=== PATIENT | female | born 1940 | race Caucasian/White ===

== ENCOUNTER 2016-08-15 10:48 | Observation (INO) | payer MEDICARE, BC ==
[2016-08-15 11:41] LABS: Hematocrit 32.5 % (37.0-47.0); Mean Cell Volume 87.1 fl (78-100); Mean Corpuscular Hemoglobin 26.8 pg (27-31); Mean Corpuscular Hgb Conc 30.8 g/dl (32-36); Mean Platelet Volume 10.5 fl (6.0-9.5); Neutrophil # 3.4 K/mm3 (1.3-6.0); Neutrophil % 65.3 % (42-75.0); Platelet Count 220 K/mm3 (150-450); Red Blood Count 3.73 M/mm3 (4.2-5.4); Red Cell Distribution Width 18.5 % (11.5-14.0); White Blood Count 5.2 K/mm3 (4.0-10.5)
[2016-08-15 11:51] LABS: Prothrombin Time (Patient) 11.3 Seconds (9.4-11.4)
[2016-08-15 11:53] LABS: INR 1.09 INR (0.90-1.10); Partial Thrombolplastin Time 29.7 Seconds (24-32)
[2016-08-15 11:57] LABS: Troponin I 0.086 ng/ml (0.00-0.10)
[2016-08-15 11:59] LABS: Albumin * 3.2 gm/dl (3.4-5.0); Anion Gap 13.3 mmol/L (6.8-13.8); BUN/Creatinine Ratio 13.3 (9.0-21.6); Bilirubin, Total 0.5 mg/dL (0.0-1.1); Ca. Corrected For Albumin 8.7 mg/dL (8.4-10.2); Calcium * 8.4 mg/dL (7.9-10.9); Carbon Dioxide 23.4 mmol/L (24-32.6); Potassium 3.7 mmol/L (3.4-4.6); Total Protein 6.2 gm/dL (6.2-8.2)
[2016-08-15] MEDS ORDERED: DILTIAZEM HCL 5 MG/ML VIAL IV ONE (11:59)
[2016-08-15] MEDS: DILTIAZEM HCL 125 MG in DEXTROSE 5 % IN WATER 100 ML IV PRN ×4 (12:20→19:16)
--- NOTE | 2016-08-15 14:04 | ERNOTE ---
Dizziness ER Record Date of Service: 08/15/16 Presenting Symptoms: dizziness, weakness Time Seen by Provider: 08/15/16 11:20 Source: patient, family, RN notes reviewed Immunizations: IMMUNIZATION HX Immunizations Up to Date No History of Influenza Vaccine Yes Hx Pneumococcal Vaccination Yes Allergies/Adverse Reactions: Allergies Allergy/AdvReac Type Severity Reaction Status Date / Time chlorpheniramine Allergy Intermediate Verified 08/13/16 11:20 [From Codeine Antitussive Cough] hydrocodone [Hydrocodone] Allergy Intermediate hallucinati Verified 08/13/16 11: 20 ons phenylephrine HCl Allergy Unknown Verified 08/13/16 11:20 [From Codeine Antitussive Cough] acetaminophen [From Vicodin] Allergy Verified 08/13/16 11:20 hydrocodone bitartrate Allergy Verified 08/13/16 11:20 [From Vicodin] morphine Allergy Verified 08/13/16 11:20 codeine [Codeine] AdvReac Nausea Verified 08/13/16 11:20 promethazine AdvReac Other Verified 08/13/16 11:20 Home Medications: HOME MEDICATIONS Atenolol [Tenormin] 25 mg PO DAILY 07/23/13 [Last Taken 06/08/16 06:30] Folic Acid 2 mg PO DAILY 04/07/14 [Last Taken 06/07/16 09:00] Methotrexate Sodium [Methotrexate] 25 mg SQ Q7D 04/07/14 [Last Taken 06/05/16 09 :00] LORazepam [Ativan] 0.5 mg PO TID PRN #0 tablet 04/08/14 [Last Taken 06/08/16 06: 30] Pantoprazole Sodium [Protonix] 20 mg PO DAILY 03/17/15 [Last Taken 06/07/16 09: 00] Prednisone [[place]ar[place]] 3 mg PO DAILY 03/17/15 [Last Taken 06/07/16 09:00] Calcium Carbonate [Calcium] 500 mg PO DAILY 06/08/16 [Last Taken 06/07/16 09:00] Ondansetron [Zofran Odt] 4 mg PO Q8H PRN #20 tab 08/13/16 [Last Taken Unknown] - History of Present Illness Narrative: sick for several days with cough and shortness of breath, was weaker this am, could hardly get her up. Was seen 2 days ago for syncope and gastroenteritis but has not been getting better. Timing and Duration: gradual onset Review of Systems - Review of Systems Constitutional: Present: weakness, fatigue EYE: Present: no symptoms reported Respiratory: Present: cough Gastrointestinal/Abdominal: Present: nausea. Absent: abdominal pain Genitourinary: Present: no symptoms reported Neurological: Present: dizziness/light-headedness. Absent: headache Endocrine: Present: no symptoms reported Hematologic/Lymphatic: Present: no symptoms reported Psych: Present: no symptoms reported - Patient's Past Medical History Patient History - Medical: Anxiety, Chronic Pain, Depression, GERD, Kidney stone , Rheumatoid Arthritis Patient History - Cardiac/Respiratory: Hypertension Patient History - Cancer: No Hx of Cancer Patient History - Surgical Procedures: Cataracts, Colonoscopy, EGD, Other - Family History Mother Family History - Medical: Alcohol Abuse Family History - Cardiac/Respiratory: CHF Father Family History - Medical: Alcohol Abuse Family History - Cardiac/Respiratory: CVA/Stroke, Myocardial Infarction Brother Family History - Medical: Anxiety, Chronic Pain, GERD, Renal Failure Family History - Cardiac/Respiratory: Hypertension, Pneumonia - Social History Living Situations: spouse Smoking Status: Never smoker Have you smoked in the past 12 months: No Do you dip or chew tobacco: No Patient requests Smoking Cessation Consult: No Initiate information on Smoking Cessation: No Alcohol Use: none Drug Use: none Physical Exam - Physical Exam General Appearance: Present: wd/wn, alert, mild distress Eye Exam: Normal inspection: bilateral, PERRL: bilateral Ears, Nose, Throat: Present: normal ENT inspection Neck: Present: normal inspection Respiratory: Present: no respiratory distress, normal breath sounds, no accessory muscle use, lungs clear Cardiovascular/Chest: Present: tachycardia, irregularly irregular Gastrointestinal/Abdominal: Present: normal bowel sounds, no organomegaly Rectal Exam: Present: nontender Neurological Exam: Present: alert Skin Exam: Present: normal color ED Progress - Results and Orders Patient's Lab Results:: I have reviewed the patient's lab results. - Vital Signs Patient's Vital Signs:: I have reviewed the patient's vital signs. Vital Signs: Vital Signs 08/15/16 08/15/16 08/15/16 11:02 11:10 11:14 Temperature Pulse Rate 164 H 156 H 174 H Respiratory 23 H 19 23 H Rate Blood Pressure O2 Sat by Pulse 93 93 92 Oximetry 08/15/16 08/15/16 08/15/16 11:18 11:27 11:40 Temperature 36.5 C Pulse Rate 163 H 170 H 170 H Respiratory 17 17 Rate Blood Pressure 91/72 91/72 O2 Sat by Pulse 95 91 Oximetry 08/15/16 08/15/16 08/15/16 12:00 12:03 12:09 Temperature Pulse Rate 165 H 151 H 167 H Respiratory 18 18 16 Rate Blood Pressure 95/56 104/68 O2 Sat by Pulse 96 97 97 Oximetry 08/15/16 08/15/16 08/15/16 12:12 12:20 12:21 Temperature Pulse Rate 125 H 120 H 126 H Respiratory 17 19 Rate Blood Pressure 81/53 81/53 88/61 O2 Sat by Pulse 97 97 Oximetry 08/15/16 12:25 Temperature Pulse Rate 133 H Respiratory 15 Rate Blood Pressure 102/63 O2 Sat by Pulse 98 Oximetry - X-Ray X-Ray #1 X-Ray: chest Interpretation: Reviewed by me X-ray Comments: no acute - Progress/Reassessment Chief Complaint: Dizziness Plan - Plan Plan: Admit to hospital, ICU, tim [place]. Departure Clinical Impression: Atrial fibrillation - Departure Disposition: [facility] Condition: Fair Instructions: Atrial Fibrillation, [id number]
[2016-08-15] MEDS ORDERED: ENOXAPARIN SODIUM 30 MG/0.3 ML SYRG SC ONE ×2 (15:23)
[2016-08-15] MEDS ORDERED: ENOXAPARIN SODIUM 100 MG/ML SYRG SC ONE (15:28)
[2016-08-15] MEDS ORDERED: LORazepam 0.5 MG TABLET PO PRN (16:42)
[2016-08-15] MEDS ORDERED: ACETAMINOPHEN 325 MG TABLET PO PRN (16:44)
[2016-08-15] MEDS ORDERED: METHOTREXATE SODIUM 2.5 MG TABLET PO SCH (16:45)
[2016-08-15 17:02] LABS: T4 Free * 1.4 ng/dL (0.76-1.46); TSH * 6.498 uIU/mL (0.358-3.74)
[2016-08-15] MEDS ORDERED: ATENOLOL 50 MG TABLET ONE (18:41)
[2016-08-15] MEDS: ATENOLOL 25 MG TABLET PO SCH (18:47)
--- NOTE | 2016-08-15 20:48 | HP ---
Chief Complaint - Chief Complaint Date of Service: 08/15/16 Time of Service: 20:42 Chief Complaint: Weak History of Present Illness: This is a 76 y/o woman with rheumatoid arthritis. She does not have a history of irregular or abnormal heart rhythms. She has been sick for several days with cough and shortness of breath, was weaker this am, Her could hardly get her up, so she came to the [facility] ER where she was found to have for the first time ever a fib with rvr. Rate is more controlled with diltiazem, but it has tended to drop her systolic blood pressure.. She was seen 2 days ago in the [facility] ER for syncope and gastroenteritis but has not been getting better. - Patient's Past Medical History Patient History - Medical: Anxiety, Chronic Pain, Depression, GERD, Kidney stone , Rheumatoid Arthritis Patient History - Cardiac/Respiratory: Hypertension Patient History - Cancer: No Hx of Cancer Patient History - Surgical Procedures: Cataracts, Colonoscopy, EGD, Other - Family History Mother Family History - Medical: Alcohol Abuse Family History - Cardiac/Respiratory: CHF Father Family History - Medical: Alcohol Abuse Family History - Cardiac/Respiratory: CVA/Stroke, Myocardial Infarction Brother Family History - Medical: Anxiety, Chronic Pain, GERD, Renal Failure Family History - Cardiac/Respiratory: Hypertension, Pneumonia - Social History Living Situations: alone Smoking Status: Never smoker Have you smoked in the past 12 months: No Do you dip or chew tobacco: No Patient requests Smoking Cessation Consult: No Initiate information on Smoking Cessation: No Alcohol Use: none Drug Use: none Review Of Systems (GEN) - Review of Systems Generalized/Overall Review: Present: Weakness, Malaise EENTM: Present: No Symptoms Reported Respiratory: Present: Cough, Shortness of Breath Cardiac: Present: Syncope Abdominal: Present: Other - anorexia Genitourinary: Present: No Symptoms Reported Musculoskeletal: Present: Joint Pain, Joint Swelling Neurological: Present: No Symptoms Reported Skin: Present: No Symptoms Reported Endocrine: Present: No Symptoms Reported Misc: All systems neg except as marked Allergies/Adverse Reactions: Allergies Allergy/AdvReac Type Severity Reaction Status Date / Time chlorpheniramine Allergy Intermediate Verified 08/15/16 17:50 [From Codeine Antitussive Cough] hydrocodone [Hydrocodone] Allergy Intermediate hallucinati Verified 08/15/16 17: 50 ons phenylephrine HCl Allergy Unknown Verified 08/15/16 17:50 [From Codeine Antitussive Cough] acetaminophen [From Vicodin] Allergy Verified 08/15/16 17:50 hydrocodone bitartrate Allergy Verified 08/15/16 17:50 [From Vicodin] morphine Allergy Verified 08/15/16 17:50 aspirin AdvReac Verified 08/15/16 17:50 codeine [Codeine] AdvReac Nausea Verified 08/15/16 17:50 promethazine AdvReac Other Verified 08/15/16 17:50 Home Medications: HOME MEDICATIONS Atenolol [Tenormin] 25 mg PO DAILY 07/23/13 [Last Taken 06/08/16 06:30] Folic Acid 1 mg PO TID 04/07/14 [Last Taken 06/07/16 09:00] Methotrexate Sodium [Methotrexate] 25 mg SQ Q7D 04/07/14 [Last Taken 06/05/16 09 :00] LORazepam [Ativan] 0.5 mg PO TID PRN #0 tablet 04/08/14 [Last Taken 06/08/16 06: 30] Pantoprazole Sodium [Protonix] 20 mg PO DAILY 03/17/15 [Last Taken 06/07/16 09: 00] Ondansetron [Zofran Odt] 4 mg PO Q8H PRN #20 tab 08/13/16 [Last Taken Unknown] Calc/D3/Mag/Zn/[employer] Dispatcher/[place] [Calcium 600 mg Plus Vit D Tab] 2 each PO DAILY [Last Taken Unknown] Fluticasone Propionate [Flovent Diskus] 2 spray IH DAILY 08/15/16 [Last Taken Unknown] predniSONE [Prednisone] 3 mg PO DAILY 08/15/16 [Last Taken Unknown] Exam - Exam Vital Signs: Vital Signs - Last Taken Selected Entries 08/15/16 08/15/16 08/15/16 18:14 19:00 19:16 Pulse Rate 105 H 101 H 100 Pulse Rhythm Irregular Pulse Strength Normal Respiratory 20 17 Rate Respiratory Normal Normal Depth Respiratory Normal Effort Non-Labored Respiratory Normal Pattern Blood Pressure 137/56 99/56 99/56 Blood Pressure Sitting Position O2 Sat by Pulse 95 98 Oximetry Oxygen Delivery Room Air Room Air Method Constitutional: Present: Alert, Oriented x3, Cooperative, Well developed, Well nourished, No distress ENT Exam: Present: normal ENT inspection, hearing grossly normal, pharynx normal Eye Exam: bilateral eye: normal inspection, PERRL, EOMI Neck: Present: normal inspection Back Exam: Present: normal inspection Respiratory: Present: lungs clear, no respiratory distress Cardiovascular/Chest: Present: no murmur, irregularly irregular Abdomen: Present: Normal bowel sounds, soft, nontender, nondistended, no rebound tenderness, no hepatospenomegaly, no masses Extremity: Present: no pedal edema, other - rheumatic joints, especially fingers Neurologic: Present: alert, oriented x 3 Appearance: Present: appropriate appearance, appropriate insight, neat, no memory impairment Eye contact: Present: cooperative, good eye contact, normal speech Thoughts: Present: normal thought pattern Diagnostic Studies: Laboratory Results WBC 5.2 K/mm3 (4.0-10.5) D 08/15/16 11:33 RBC 3.73 M/mm3 (4.2-5.4) L 08/15/16 11:33 Hgb 10.0 gm/dL (12.5-16.0) L 08/15/16 11:33 Hct 32.5 % (37.0-47.0) L 08/15/16 11:33 MCV 87.1 fl (78-100) 08/15/16 11:33 MCH 26.8 pg (27-31) L 08/15/16 11:33 MCHC 30.8 g/dl (32-36) L 08/15/16 11:33 RDW 18.5 % (11.5-14.0) H 08/15/16 11:33 Plt Count 220 K/mm3 (150-450) 08/15/16 11:33 MPV 10.5 fl (6.0-9.5) H 08/15/16 11:33 Immature Gran % (Auto) 0.40 % (0.001-0.429) 08/15/16 11:33 Immature Gran # (Auto) 0.02 K/mm3 (0.000-0.0310) 08/15/16 11:33 Neutrophils % 65.3 % (42-75.0) 08/15/16 11:33 Lymphocytes % 24.3 % (20-51) 08/15/16 11:33 Monocytes % 9.4 % (0.0-9) H 08/15/16 11:33 Eosinophils % 0.2 % (0.0-3.0) 08/15/16 11:33 Basophils % 0.4 % (0.0-1.0) 08/15/16 11:33 Nucleated RBC % 0.0 k/mm3 (0-1) 08/15/16 11:33 Neutrophils # 3.4 K/mm3 (1.3-6.0) 08/15/16 11:33 Lymphocytes # 1.3 k/mm3 (1.5-3.5) L 08/15/16 11:33 Monocytes # 0.5 k/mm3 (0.0-1.0) 08/15/16 11:33 Eosinophils # 0.0 k/mm3 (0.0-0.7) 08/15/16 11:33 Absolute Basophils 0.0 k/mm3 (0.0-0.1) 08/15/16 11:33 PT 11.3 Seconds (9.4-11.4) 08/15/16 11:33 INR (Anticoag Therapy) 1.09 INR (0.90-1.10) 08/15/16 11:33 PTT ([place]) 29.7 Seconds (24-32) 08/15/16 11:33 Sodium 138 mmol/L (132-142) 08/15/16 11:33 Plasma Sodium 138 mmol/L (130-142) 08/15/16 11:33 Potassium 3.7 mmol/L (3.4-4.6) 08/15/16 11:33 Chloride 105 mmol/L (97-106) 08/15/16 11:33 Carbon Dioxide 23.4 mmol/L (24-32.6) L 08/15/16 11:33 Anion Gap 13.3 mmol/L (6.8-13.8) 08/15/16 11:33 BUN 13 mg/dL (3-23) 08/15/16 11:33 Creatinine 0.98 mg/dL (0.4-1.4) 08/15/16 11:33 Est GFR (Non-Af Amer) 58 mL/min (60-130) L 08/15/16 11:33 BUN/Creatinine Ratio 13.3 (9.0-21.6) 08/15/16 11:33 Random Glucose 102 mg/dL (70-110) 08/15/16 11:33 Lactic Acid, Venous 1.5 mmol/L (0.4-2.0) 08/15/16 11:33 Calcium 8.4 mg/dL (7.9-10.9) 08/15/16 11:33 Calcium Adj for Albumin 8.7 mg/dL (8.4-10.2) 08/15/16 11:33 Total Bilirubin 0.5 mg/dL (0.0-1.1) 08/15/16 11:33 AST 52 U/L (0-48) H 08/15/16 11:33 ALT 31 U/L (19-67) 08/15/16 11:33 Alkaline Phosphatase 37 U/L (50-170) L 08/15/16 11:33 Troponin I 0.086 ng/ml (0.00-0.10) 08/15/16 11:33 B-Natriuretic Peptide 634 pg/mL (5-550) H 08/15/16 11:33 Total Protein 6.2 gm/dL (6.2-8.2) 08/15/16 11:33 Albumin 3.2 gm/dl (3.4-5.0) L 08/15/16 11:33 TSH 6.498 uIU/mL (0.358-3.74) H 08/15/16 11:30 Free T4 1.40 ng/dL (0.76-1.46) 08/15/16 11:30 Assessment/Plan - Narrative Narrative: Follow labs. Echo. Diltiazem drip. Oral amiodarone. Estimate hospital stay of 4-5 days. - Assessment/Plan (1) Rheumatoid arthritis Problem: Chronic Qualifiers: Rheumatoid factor presence: unspecified presence Laterality: bilateral (2) Atrial fibrillation Problem: Acute Qualifiers: Atrial fibrillation type: paroxysmal Qualified Code(s): I48.0 - Paroxysmal atrial fibrillation (3) Hypertension Problem: Chronic Qualifiers: Hypertension type: essential hypertension (4) Pre-syncope Problem: Chronic (5) Weakness Problem: Chronic
[2016-08-16] MEDS ORDERED: ENOXAPARIN SODIUM 100 MG/ML SYRG SC ONE (02:34)
[2016-08-16] MEDS ORDERED: guaiFENesin/DEXTROMETHORPHAN 118 ML BTL PO PRN (02:37)
[2016-08-16] MEDS ORDERED: ENOXAPARIN SODIUM 80 MG/0.8 ML DISP.SYRIN SC SCH (03:00)
[2016-08-16 05:17] LABS: Hematocrit 30.6 % (37.0-47.0); Hemoglobin 9.6 gm/dL (12.5-16.0); Mean Cell Volume 86.7 fl (78-100); Mean Corpuscular Hemoglobin 27.2 pg (27-31); Mean Corpuscular Hgb Conc 31.4 g/dl (32-36); Mean Platelet Volume 10.1 fl (6.0-9.5); Neutrophil # 2.7 K/mm3 (1.3-6.0); Neutrophil % 66.2 % (42-75.0); Platelet Count 201 K/mm3 (150-450); Red Blood Count 3.53 M/mm3 (4.2-5.4); Red Cell Distribution Width 18.4 % (11.5-14.0)
[2016-08-16 05:40] LABS: Anion Gap 15.5 mmol/L (6.8-13.8); BUN/Creatinine Ratio 11.8 (9.0-21.6); Carbon Dioxide 22.1 mmol/L (24-32.6); Estimated Creat Clear 38.3; Potassium 3.6 mmol/L (3.4-4.6)
[2016-08-16] MEDS ORDERED: ATENOLOL 50 MG TABLET ONE (06:23)
[2016-08-16] MEDS: ATENOLOL 25 MG TABLET PO SCH (06:31)
[2016-08-16] MEDS ORDERED: LEVOTHYROXINE SODIUM 25 MCG TABLET PO SCH (07:00)
[2016-08-16] MEDS ORDERED: BENZONATATE 100 MG CAPSULE PO PRN (07:32)
--- NOTE | 2016-08-16 07:45 | DS ---
(1) Rheumatoid arthritis Problem: Chronic Qualifiers: Rheumatoid factor presence: unspecified presence Laterality: bilateral (2) Atrial fibrillation Problem: Resolved Qualifiers: Atrial fibrillation type: paroxysmal Qualified Code(s): I48.0 - Paroxysmal atrial fibrillation (3) Hypertension Problem: Chronic Qualifiers: Hypertension type: essential hypertension (4) Pre-syncope Problem: Chronic (5) Weakness Problem: Chronic (6) URI (upper respiratory infection) Problem: Acute Qualifiers: URI type: unspecified viral URI Qualified Code(s): J06.9 - Acute upper respiratory infection, unspecified; B97.89 - Other viral agents as the cause of diseases classified elsewhere (7) Hypothyroidism (acquired) Problem: Acute Description of Stay: Rate control with IV diltiazem, but lowered BP substantially to the 80-90 systolic range. Early this morning, converted to sinus rhythm. Feels ok except for her cough. Amiodarone was started yesterday. Mild elevation of TSH was noted at admission, so low dose synthroid was started. Procedures Performed: none Discharge Disposition: Home self care Disposition: Home self-care Condition: Fair Discharge Activity: Activity as tolerated Discharge Diet: General/regular food Problem Oriented Discharge Instructions to Patient/Family: Atrial Fibrillation , [id number] Additional Patient Instructions (free text): CBC BMP 3 days. Echocardiogram [address] Tiny Thakur next week. Prescriptions (Any new or edited meds): Amiodarone HCl [Cordarone] 200 mg PO DAILY #30 tablet Apixaban [Eliquis] 5 mg PO BID #60 tablet Atenolol [Tenormin] 25 mg PO BID #60 tablet Benzonatate [Tessalon] 200 mg PO TID PRN #100 capsule PRN Reason: Cough Levothyroxine Sodium [Synthroid] 25 mcg PO DAILY@0700 #30 tablet Complete Home Medications List: Complete Home Medication List: Methotrexate Sodium [Methotrexate] 25 mg SQ Q7D 04/07/14 LORazepam [Ativan] 0.5 mg PO TID PRN #0 tablet 04/08/14 Pantoprazole Sodium [Protonix] 20 mg PO DAILY 03/17/15 Calc/D3/Mag/Zn/Health Care Consultant/[place] [Calcium 600 mg Plus Vit D Tab] 2 each PO DAILY Fluticasone Propionate [Flovent Diskus] 2 spray IH DAILY 08/15/16 predniSONE [Prednisone] 3 mg PO DAILY 08/15/16 Acetaminophen [Tylenol] 650 mg PO QID PRN #0 tablet 08/16/16 Amiodarone HCl [Cordarone] 200 mg PO DAILY #30 tablet 08/16/16 Apixaban [Eliquis] 5 mg PO BID #60 tablet 08/16/16 Atenolol [Tenormin] 25 mg PO BID #60 tablet 08/16/16 Benzonatate [Tessalon] 200 mg PO TID PRN #100 capsule 08/16/16 Calcium Carbonate [Tums] 500 mg PO DAILY tab.chew 08/16/16 Folic Acid 2 mg PO DAILY tablet 08/16/16 Levothyroxine Sodium [Synthroid] 25 mcg PO DAILY@0700 #30 tablet 08/16/16 predniSONE [Prednisone] 3 mg PO DAILY tablet 08/16/16
[2016-08-16] MEDS ORDERED: PANTOPRAZOLE SODIUM 20 MG TABLET.DR PO SCH (09:00)
[2016-08-16] MEDS ORDERED: AMIODARONE HCL 200 MG TABLET PO SCH (09:00)
[2016-08-16] MEDS ORDERED: CALCIUM CARBONATE 500 MG TAB.CHEW PO SCH (09:00)
[2016-08-16] MEDS ORDERED: FOLIC ACID 1 MG TABLET PO SCH (09:00)
[2016-08-16] MEDS ORDERED: predniSONE 1 MG TABLET PO SCH (09:00)
[2016-08-16 09:55] VITALS: BP 111/59
== END 2016-08-16 11:26 | disposition home or self-care (01) ==
LOC: ER 10:48 → OBSVTOIN 16:14 → INTOOBSV 16:14 → SCU 16:14
PROVIDERS: ADMIT Allergy & Immunology; ATTEND Allergy & Immunology
DX: J06.9 Acute upper respiratory infection, unspecified (principal); B97.89 Other viral agents as the cause of diseases classified elsewhere; R53.1 Weakness; M06.9 Rheumatoid arthritis, unspecified; I10 Essential (primary) hypertension; R55 Syncope and collapse; E03.9 Hypothyroidism, unspecified; F41.8 Other specified anxiety disorders; G89.29 Other chronic pain; K21.9 Gastro-esophageal reflux disease without esophagitis; Z79.899 Other long term (current) drug therapy; Z82.3 Family history of stroke; Z82.49 Family history of ischemic heart disease and other diseases of the circulatory system; Z81.1 Family history of alcohol abuse and dependence
CPT/HCPCS: 36415; 71010; 80048; 80053; 83605; 83880; 84439; 84443; 84484; 85025; 85610; 85730; 93005; 96372; 96374; 99283; G0378

== ENCOUNTER 2016-08-22 09:03 | Emergency (ER) | payer MEDICARE, BC ==
--- NOTE | 2016-08-22 09:26 | ERNOTE ---
[id number] 4d 08/22/16 09:06 Source: patient Exam Limitations: no limitations - Immun/Allergies/Home Medications Immunizations: IMMUNIZATION HX Immunizations Up to Date No History of Influenza Vaccine Yes Hx Pneumococcal Vaccination Yes Allergies/Adverse Reactions: Allergies chlorpheniramine [From Codeine Antitussive Cough] Allergy (Intermediate, Verified 08/15/16 17:50) hydrocodone [Hydrocodone] Allergy (Intermediate, Verified 08/15/16 17:50) hallucinations phenylephrine HCl [From Codeine Antitussive Cough] Allergy (Unknown, Verified 17:50) acetaminophen [From Vicodin] Allergy (Verified 08/15/16 17:50) States she is not allergic to Tylenol. hydrocodone bitartrate [From Vicodin] Allergy (Verified 08/15/16 17:50) morphine Allergy (Verified 08/15/16 17:50) aspirin Adverse Reaction (Verified 08/15/16 17:50) codeine [Codeine] Adverse Reaction (Verified 08/15/16 17:50) Nausea promethazine Adverse Reaction (Verified 08/15/16 17:50) Other Home Medications: HOME MEDICATIONS Methotrexate Sodium [Methotrexate] 25 mg SQ Q7D 04/07/14 [Last Taken 06/05/16 09 :00] LORazepam [Ativan] 0.5 mg PO TID PRN #0 tablet 04/08/14 [Last Taken 06/08/16 06: 30] Pantoprazole Sodium [Protonix] 20 mg PO DAILY 03/17/15 [Last Taken 06/07/16 09: 00] Calc/D3/Mag/Zn/[employer] Trimmer/[place] [Calcium 600 mg Plus Vit D Tab] 2 each PO DAILY [Last Taken Unknown] Fluticasone Propionate [Flovent Diskus] 2 spray IH DAILY 08/15/16 [Last Taken Unknown] predniSONE [Prednisone] 3 mg PO DAILY 08/15/16 [Last Taken Unknown] Acetaminophen [Tylenol] 650 mg PO QID PRN #0 tablet 08/16/16 [Last Taken Unknown ] Amiodarone HCl [Cordarone] 200 mg PO DAILY #30 tablet 08/16/16 [Last Taken Unknown] Apixaban [Eliquis] 5 mg PO BID #60 tablet 08/16/16 [Last Taken Unknown] Atenolol [Tenormin] 25 mg PO BID #60 tablet 08/16/16 [Last Taken Unknown] Benzonatate [Tessalon] 200 mg PO TID PRN #100 capsule 08/16/16 [Last Taken Unknown] Calcium Carbonate [Tums] 500 mg PO DAILY tab.chew 08/16/16 [Last Taken Unknown] Folic Acid 2 mg PO DAILY tablet 08/16/16 [Last Taken Unknown] Levothyroxine Sodium [Synthroid] 25 mcg PO DAILY@0700 #30 tablet 08/16/16 [Last Taken Unknown] Ipratropium [place] [Atrovent Hfa] 2 puff IH QID #1 inhaler 08/22/16 [Last Taken Unknown] - History of Present Illness Narrative: Patient has had a cough since that she has not been able to shake. She was seen in the ER after she had a syncopal episode and nausea vomiting. Again seen on the and found to be in new onset afib and admitted to the hospital. She converted spontaneously on August 16 and was discharged. She followed up with her doctor and was putted on cough medication that helps only some. She stills coughs a lot and it keeps her from sleeping at night, gets short of breath with exertion and coughing. She doesn't remember ever having been on a nebulizer. She never smoked but has been exposed to passive smoke by her father and her Initiating event: Reports: upper resp illness. Denies: out of meds, exposure to smoke Frequency of episodes: Reports: occassional episodes Modifying Factors - (Improves): Reports: rest Modifying Factors (Worsens): Reports: activity, coughing Associated Symptoms-Dyspnea: Reports: cough, wheezing. Denies: fever/chills, chest pain/discomfort, dizziness, lightheadedness Prior Treatment: Reports: recently seen. Denies: currently on antibiotics Review of Systems - Review of Systems Constitutional: Present: recent illness. Absent: fever ENT: Absent: nose congestion, nasal drainage, sore throat Respiratory: Present: See HPI, shortness of breath, cough Cardiology: Absent: chest pain Gastrointestinal/Abdominal: Present: vomiting - coughs so hard she vomits. Absent: diarrhea, abdominal pain Genitourinary: Present: no symptoms reported Neurological: Absent: headache - Patient's Past Medical History Patient History - Medical: Anxiety, Chronic Pain, Depression, GERD, Kidney stone , Rheumatoid Arthritis Patient History - Cardiac/Respiratory: Atrial Fibrillation - intermittent, Hypertension Patient History - Cancer: No Hx of Cancer Patient History - Surgical Procedures: Cataracts, Colonoscopy, EGD, Other - Family History Mother Family History - Medical: Alcohol Abuse Family History - Cardiac/Respiratory: CHF Father Family History - Medical: Alcohol Abuse Family History - Cardiac/Respiratory: CVA/Stroke, Myocardial Infarction Brother Family History - Medical: Alcohol Abuse, Renal Failure Family History - Cardiac/Respiratory: Hypertension, Pneumonia - Social History Living Situations: alone Alcohol Use: none Drug Use: none Physical Exam - Physical Exam General Appearance: Present: wd/wn, no apparent distress, anxious Eye Exam: Normal inspection: bilateral, PERRL: bilateral Ears, Nose, Throat: Present: normal pharynx Respiratory: Present: no respiratory distress, no accessory muscle use, decreased breath sounds, wheezing - few Cardiovascular/Chest: Present: regular rate, rhythm, no murmur Gastrointestinal/Abdominal: Present: nontender, soft Extremity Exam: Present: no edema Neurological Exam: Present: alert, oriented, normal mood/affect Skin Exam: Present: normal color, warm/dry ED Progress - Results and Orders Patient's Lab Results:: I have reviewed the patient's lab results. - Vital Signs Patient's Vital Signs:: I have reviewed the patient's vital signs. Vital Signs: Vital Signs 08/22/16 09:04 Temperature 37.4 C Blood Pressure 112/66 - X-Ray X-Ray #1 X-Ray: chest - hyperinflation, no acute findings Interpretation: Reviewed by me - Progress/Reassessment Progress Note-Subjective: 08/22/16 10:58 patient is resting comfortable, cough and dyspnoa better since albuterol but it made her feel anxious, better now 08/22/16 12:10 feeling better after atrovent discussed realistic expectation of resolution of cough Departure Clinical Impression: Bronchitis - Departure Disposition: Home self-care Condition: Fair Instructions: Acute Bronchitis, [id number] Additional Instructions: use the inhaler with a spacer as instructed take the cough medication given to you by Dr Thakur as prescribed and call her after the weekend for follow up. Referrals: Tiny Thakur MD [Primary Care Provider] - Prescriptions: Ipratropium [place] [Atrovent Hfa] 2 puff IH QID #1 inhaler
[2016-08-22] MEDS ORDERED: ALBUTEROL SULFATE 2.5 MG/0.5 ML VIAL.NEB IH ONE ×2 (09:29→09:34)
[2016-08-22 09:45] LABS: Hematocrit 31.1 % (37.0-47.0); Hemoglobin 9.4 gm/dL (12.5-16.0); Mean Cell Volume 88.1 fl (78-100); Mean Corpuscular Hemoglobin 26.6 pg (27-31); Mean Corpuscular Hgb Conc 30.2 g/dl (32-36); Mean Platelet Volume 10.8 fl (6.0-9.5); Neutrophil # 6.8 K/mm3 (1.3-6.0); Neutrophil % 76.2 % (42-75.0); Platelet Count 243 K/mm3 (150-450); Red Blood Count 3.53 M/mm3 (4.2-5.4); Red Cell Distribution Width 19.1 % (11.5-14.0); White Blood Count 8.9 K/mm3 (4.0-10.5)
[2016-08-22 10:07] LABS: Albumin * 3.5 gm/dl (3.4-5.0); Anion Gap 15.1 mmol/L (6.8-13.8); BUN/Creatinine Ratio 10.2 (9.0-21.6); Ca. Corrected For Albumin 8.9 mg/dL (8.4-10.2); Calcium * 8.8 mg/dL (7.9-10.9); Carbon Dioxide 23.3 mmol/L (24-32.6); Potassium 3.4 mmol/L (3.4-4.6); Total Protein 6.4 gm/dL (6.2-8.2)
[2016-08-22] MEDS ORDERED: IPRATROPIUM BROMIDE 0.5 MG/2.5 ML VIAL.NEB IH ONE ×2 (10:57→11:33)
[2016-08-22 11:40] VITALS: BP 140/56
== END 2016-08-22 12:34 | disposition home or self-care (01) ==
LOC: ER 09:03
DX: J20.9 Acute bronchitis, unspecified (principal); K21.9 Gastro-esophageal reflux disease without esophagitis; F41.9 Anxiety disorder, unspecified

== ENCOUNTER 2016-09-04 05:50 | Emergency (ER) | payer MEDICARE, BC ==
--- NOTE | 2016-09-04 06:18 | ERNOTE ---
Stated Complaint: COUGH Presenting Symptoms:: cough Source: patient, family Exam Limitations: no limitations Immunizations: IMMUNIZATION HX Immunizations Up to Date Yes History of Influenza Vaccine Yes Hx Pneumococcal Vaccination Yes Allergies/Adverse Reactions: Allergies chlorpheniramine [From Codeine Antitussive Cough] Allergy (Intermediate, Verified 08/15/16 17:50) hydrocodone [Hydrocodone] Allergy (Intermediate, Verified 08/15/16 17:50) hallucinations phenylephrine HCl [From Codeine Antitussive Cough] Allergy (Unknown, Verified 17:50) hydrocodone bitartrate [From Vicodin] Allergy (Verified 08/15/16 17:50) morphine Allergy (Verified 08/15/16 17:50) aspirin Adverse Reaction (Verified 08/15/16 17:50) codeine [Codeine] Adverse Reaction (Verified 08/15/16 17:50) Nausea promethazine Adverse Reaction (Verified 08/15/16 17:50) Other Home Medications: HOME MEDICATIONS Methotrexate Sodium [Methotrexate] 25 mg SQ Q7D 04/07/14 [Last Taken 06/05/16 09 :00] LORazepam [Ativan] 0.5 mg PO TID PRN #0 tablet 04/08/14 [Last Taken 06/08/16 06: 30] Pantoprazole Sodium [Protonix] 20 mg PO DAILY 03/17/15 [Last Taken 06/07/16 09: 00] Calc/D3/Mag/Zn/Molder Machine Tender/[place] [Calcium 600 mg Plus Vit D Tab] 2 each PO DAILY [Last Taken Unknown] Fluticasone Propionate [Flovent Diskus] 2 spray IH DAILY 08/15/16 [Last Taken Unknown] predniSONE [Prednisone] 3 mg PO DAILY 08/15/16 [Last Taken Unknown] Acetaminophen [Tylenol] 650 mg PO QID PRN #0 tablet 08/16/16 [Last Taken Unknown ] Amiodarone HCl [Cordarone] 200 mg PO DAILY #30 tablet 08/16/16 [Last Taken Unknown] Apixaban [Eliquis] 5 mg PO BID #60 tablet 08/16/16 [Last Taken Unknown] Atenolol [Tenormin] 25 mg PO BID #60 tablet 08/16/16 [Last Taken Unknown] Calcium Carbonate [Tums] 500 mg PO DAILY tab.chew 01/01/17 [Last Taken Unknown] Folic Acid 2 mg PO DAILY tablet 08/16/16 [Last Taken Unknown] Levothyroxine Sodium [Synthroid] 25 mcg PO DAILY@0700 #30 tablet 08/16/16 [Last Taken Unknown] Ipratropium [place] [Atrovent Hfa] 2 puff IH QID #1 inhaler 08/22/16 [Last Taken Unknown] - History of Present Ilness Narrative: Pt started having cough 3 weeks ago. She has been seen in the ED and has seen her PCP and continues to cough. States that nothing she has been given has helped Timing: constant Severity: moderate Associated Symptoms: Denies: fever/chills Prior Treatment: Reports: recently seen, treated by physician - ED and PCP Review of Systems - Review of Systems Constitutional: Present: See HPI, recent illness, fatigue, other - difficulty sleeping due to cough EYE: Present: no symptoms reported ENT: Present: nose congestion Respiratory: Present: See HPI Cardiology: Present: no symptoms reported Gastrointestinal/Abdominal: Present: vomiting - due to coughing at times. Absent: nausea Genitourinary: Present: no symptoms reported Musculoskeletal: Present: no symptoms reported Skin: Present: no symptoms reported Neurological: Present: no symptoms reported Endocrine: Present: no symptoms reported Hematologic/Lymphatic: Present: no symptoms reported Psych: Present: no symptoms reported - Patient's Past Medical History Patient History - Medical: Anxiety, Chronic Pain, Depression, GERD, Kidney stone , Rheumatoid Arthritis Patient History - Cardiac/Respiratory: Atrial Fibrillation - intermittent, Hypertension Patient History - Cancer: No Hx of Cancer Patient History - Surgical Procedures: Cataracts, Colonoscopy, EGD, Other - Family History Mother Family History - Medical: Alcohol Abuse Family History - Cardiac/Respiratory: CHF Father Family History - Medical: Alcohol Abuse Family History - Cardiac/Respiratory: CVA/Stroke, Myocardial Infarction Brother Family History - Medical: Alcohol Abuse, Renal Failure Family History - Cardiac/Respiratory: Hypertension, Pneumonia - Social History Living Situations: alone Smoking Status: Never smoker Have you smoked in the past 12 months: No Do you dip or chew tobacco: No Patient requests Smoking Cessation Consult: No Initiate information on Smoking Cessation: No Alcohol Use: none Drug Use: none Physical Exam - Physical Exam General Appearance: Present: wd/wn, alert, no apparent distress Eye Exam: Normal inspection: bilateral Ears, Nose, Throat: Present: nasal congestion - with mild erythema and mucoid discharge left side Neck: Present: normal inspection, nontender Respiratory: Present: no respiratory distress, normal breath sounds - with coughing with deep breaths, no accessory muscle use, chest nontender, lungs clear Cardiovascular/Chest: Present: regular rate, rhythm, no murmur, normal peripheral pulses Back Exam: Present: other - increased kyphosis Extremity Exam: Present: normal inspection, no edema Neurological Exam: Present: alert, oriented, normal mood/affect, no motor/ sensory deficits Skin Exam: Present: normal color, warm/dry Lymphatic Exam: Present: no adenopathy ED Progress - Vital Signs Vital Signs: Vital Signs 09/04/16 05:56 Temperature 37.0 C Pulse Rate 76 Respiratory 18 Rate Blood Pressure 152/68 O2 Sat by Pulse 93 Oximetry - Progress/Reassessment Chief Complaint: Cough Departure - Departure Clinical Impression: Viral upper respiratory illness Disposition: Home self-care Condition: Good Instructions: Viral Respiratory Infection, [id number] Additional Instructions: Try mucinex DM one twice a day. Keep the humidifier going. use cough drops as well. Referrals: Tiny Thakur MD [Primary Care Provider] -
[2016-09-04 06:42] LABS: Hematocrit 29.3 % (37.0-47.0); Mean Cell Volume 87.2 fl (78-100); Mean Corpuscular Hemoglobin 26.8 pg (27-31); Mean Corpuscular Hgb Conc 30.7 g/dl (32-36); Mean Platelet Volume 10.4 fl (6.0-9.5); Platelet Count 252 K/mm3 (150-450); Red Blood Count 3.36 M/mm3 (4.2-5.4); Red Cell Distribution Width 19.8 % (11.5-14.0); White Blood Count 5.5 K/mm3 (4.0-10.5)
[2016-09-04 06:57] LABS: Total Cells Counted 100
[2016-09-04 07:16] LABS: Atypical (Reactive) Lymph 5 % (0-2); Band 2 % (0-2.0); Lymphocyte 21 % (20-51); Monocyte 8 % (0-9); Neutrophil 64 % (42-75); Neutrophil # 3.5 K/mm3 (1.3-6.0)
[2016-09-04 07:17] LABS: Platelet Estimate Normal (NORMAL)
[2016-09-04 07:19] LABS: Basophilic Stippling Trace
[2016-09-04 07:20] LABS: Macrocytosis 1+
[2016-09-04 08:18] VITALS: BP 131/75
== END 2016-09-04 08:11 | disposition home or self-care (01) ==
LOC: ER 05:50
DX: J06.9 Acute upper respiratory infection, unspecified (principal); B97.89 Other viral agents as the cause of diseases classified elsewhere; Z87.442 Personal history of urinary calculi; M06.9 Rheumatoid arthritis, unspecified; F41.9 Anxiety disorder, unspecified; I10 Essential (primary) hypertension; I48.91 Unspecified atrial fibrillation

== ENCOUNTER 2016-09-06 07:21 | Emergency (ER) | payer MEDICARE, BC ==
[2016-09-06] MEDS ORDERED: DILTIAZEM HCL 5 MG/ML VIAL IV ONE ×2 (07:42→07:43)
[2016-09-06] MEDS ORDERED: DILTIAZEM HCL 125 MG in DEXTROSE 5 % IN WATER 100 ML IV PRN ×2 (07:49)
[2016-09-06] MEDS ORDERED: NORMAL SALINE 1,000 ML IV ONE (07:54)
[2016-09-06 08:03] LABS: Hematocrit 30.5 % (37.0-47.0); Hemoglobin 9.2 gm/dL (12.5-16.0); Mean Cell Volume 86.6 fl (78-100); Mean Corpuscular Hemoglobin 26.1 pg (27-31); Mean Corpuscular Hgb Conc 30.2 g/dl (32-36); Neutrophil # 3.2 K/mm3 (1.3-6.0); Neutrophil % 62.7 % (42-75.0); Platelet Count 254 K/mm3 (150-450); Red Blood Count 3.52 M/mm3 (4.2-5.4); Red Cell Distribution Width 19.4 % (11.5-14.0); White Blood Count 5.1 K/mm3 (4.0-10.5)
--- NOTE | 2016-09-06 08:06 | ERNOTE ---
<Bong Sierra - Last Filed: 09/06/16 07:50> Chest Pain/Cardiac HPI Date of Service: 09/06/16 Time Seen by Provider: 09/06/16 07:47 Source: patient, family Exam Limitations: no limitations Immunizations: IMMUNIZATION HX Immunizations Up to Date Yes History of Influenza Vaccine Yes Hx Pneumococcal Vaccination Yes Allergies/Adverse Reactions: Allergies chlorpheniramine [From Codeine Antitussive Cough] Allergy (Intermediate, Verified 09/06/16 07:59) hydrocodone [Hydrocodone] Allergy (Intermediate, Verified 09/06/16 07:59) hallucinations phenylephrine HCl [From Codeine Antitussive Cough] Allergy (Unknown, Verified 07:59) hydrocodone bitartrate [From Vicodin] Allergy (Verified 09/06/16 07:59) morphine Allergy (Verified 09/06/16 07:59) aspirin Adverse Reaction (Verified 09/06/16 07:59) codeine [Codeine] Adverse Reaction (Verified 09/06/16 07:59) Nausea promethazine Adverse Reaction (Verified 09/06/16 07:59) Other Home Medications: HOME MEDICATIONS Methotrexate Sodium [Methotrexate] 25 mg SQ Q7D 04/07/14 [Last Taken 06/05/16 09 :00] LORazepam [Ativan] 0.5 mg PO TID PRN #0 tablet 04/08/14 [Last Taken 06/08/16 06: 30] Pantoprazole Sodium [Protonix] 20 mg PO DAILY 03/17/15 [Last Taken 06/07/16 09: 00] Calc/D3/Mag/Zn/Bradley Linebacker Crewmember/[place] [Calcium 600 mg Plus Vit D Tab] 2 each PO DAILY [Last Taken Unknown] Fluticasone Propionate [Flovent Diskus] 2 spray IH DAILY 08/15/16 [Last Taken Unknown] predniSONE [Prednisone] 3 mg PO DAILY 08/15/16 [Last Taken Unknown] Acetaminophen [Tylenol] 650 mg PO QID PRN #0 tablet 08/16/16 [Last Taken Unknown ] Amiodarone HCl [Cordarone] 200 mg PO DAILY #30 tablet 08/16/16 [Last Taken Unknown] Apixaban [Eliquis] 5 mg PO BID #60 tablet 08/16/16 [Last Taken Unknown] Atenolol [Tenormin] 25 mg PO BID #60 tablet 08/16/16 [Last Taken Unknown] Calcium Carbonate [Tums] 500 mg PO DAILY tab.chew 08/16/16 [Last Taken Unknown] Folic Acid 2 mg PO DAILY tablet 08/16/16 [Last Taken Unknown] Levothyroxine Sodium [Synthroid] 25 mcg PO DAILY@0700 #30 tablet 08/16/16 [Last Taken Unknown] Benzonatate [Tessalon] 200 mg PO TID 09/06/16 [Last Taken Unknown] Narrative: Patient comes due to a rapid heart rate that started yesterday at noon and has been constant. Patient has Hx of A. Fib and was started on Eliquis. Patient reported that she has had this problem before and need to be place in the hospital. Patient also with a cough that does not improved. Timing: constant Severity/Quality: moderate Location: central, epigastric Chest Pain Radiation: no radiation Activities at Onset: rest Modifying Factors - Improves: Present: nothing Modifying Factors - Worsens: Present: nothing Nitro Today/Relief: no nitro taken today Associated Symptoms: Present: other - Patient is using Eliquis Prior Chest Pain/Cardiac Workup: Reports: prior chest pain, other - Hx of A. Fib with FVR Prior Treatment: Reports: recently seen - Patient has been evaluated by PCP due to a cough, x-rays were reported negative to patient. Review of Systems - Review of Systems Constitutional: Present: fatigue, malaise. Absent: fever, chills EYE: Present: no symptoms reported ENT: Present: no symptoms reported Respiratory: Present: shortness of breath, cough - not able to produce sputum Cardiology: Present: chest pain, palpitations. Absent: syncope, edema, claudication Gastrointestinal/Abdominal: Present: nausea. Absent: vomiting, diarrhea, abdominal pain Genitourinary: Present: no symptoms reported Musculoskeletal: Present: no symptoms reported Skin: Present: no symptoms reported Neurological: Present: no symptoms reported Endocrine: Present: no symptoms reported Hematologic/Lymphatic: Absent: easy bruising, easy bleeding Psych: Present: anxiety All Other Systems: All systems neg except as marked - Patient's Past Medical History Patient History - Medical: Anxiety, Chronic Pain, Depression, GERD, Kidney stone , Rheumatoid Arthritis Patient History - Cardiac/Respiratory: Atrial Fibrillation - intermittent, Hypertension Patient History - Cancer: No Hx of Cancer Patient History - Surgical Procedures: Cataracts, Colonoscopy, EGD, Other - Family History Mother Family History - Medical: Alcohol Abuse Family History - Cardiac/Respiratory: CHF Father Family History - Medical: Alcohol Abuse Family History - Cardiac/Respiratory: CVA/Stroke, Myocardial Infarction Brother Family History - Medical: Alcohol Abuse, Renal Failure Family History - Cardiac/Respiratory: Hypertension, Pneumonia - Social History Living Situations: alone Alcohol Use: none Drug Use: none Physical Exam - Physical Exam General Appearance: Present: wd/wn, alert, mild distress Eye Exam: Normal inspection: bilateral, PERRL: bilateral, EOMI: bilateral Ears, Nose, Throat: Present: normal ENT inspection, hearing grossly normal, normal pharynx Neck: Present: normal inspection, nontender. Absent: carotid bruit Respiratory: Present: expiration (prolonged), crackles - Scattered, rhonchi - More in the L side.. Absent: rales Cardiovascular/Chest: Present: tachycardia, irregularly irregular, systolic murmur. Absent: chest tenderness, JVD Peripheral Pulses: N=norm/S=strong/W=weak/B=bound/A=absent: Radial (R): Normal, Radial (L): Normal, Dorsalis-pedis (R): Normal, Dorsalis-pedis (L): Normal Gastrointestinal/Abdominal: Present: normal bowel sounds. Absent: tenderness, distended, guarding, rebound, mass Extremity Exam: Present: normal inspection, non-tender, no edema, normal range of motion Neurological Exam: Present: alert, oriented, normal mood/affect, no motor/ sensory deficits, financial market dealer II-XII nml as tested Skin Exam: Absent: diaphoresis, cyanosis, jaundice, pallor, skin rash Lymphatic Exam: Present: no adenopathy ED Progress - Date and Time Seen: Date and Time: 09/06/16 08:00 Patient who come due to CP and was found on SVT. Patient at the moment is using Eliquis. Patient was given Cardizem IV 20, but HR > 110 persisted. Patient was started on Cardizem Drip. - Vital Signs Patient's Vital Signs:: I have reviewed the patient's vital signs. Vital Signs: Vital Signs 09/06/16 07:44 Pulse Rate 169 H Blood Pressure 152/62 - EKG EKG: no ST T wave changes EKG read: Interp. by me EKG Comments: HR: 165, No ST Elevation, LAD - Transfer of Care Physician Sign Out: Bong Sierra Brief History: Patient with CP and SVT who will need further evaluation. Patient was started on Cardizem Drip. Receiving Physician: Melchor Li Pending Results: CT/MRI results, Labs, X-ray results Expected Disposition: Admit Additional Notes: Patient on Eliquis and has Hx of Paroxysmal A. Fib with FVR Departure - Departure Clinical Impression: SVT (supraventricular tachycardia) Chest pain Qualifiers: Chest pain type: unspecified Qualified Code(s): R07.9 - Chest pain, unspecified Atrial fibrillation Qualifiers: Atrial fibrillation type: paroxysmal Qualified Code(s): I48.0 - Paroxysmal atrial fibrillation Disposition: [facility] Condition: Good Referrals: Tiny Thakur MD [Primary Care Provider] - <Melchor Li - Last Filed: 09/06/16 09:10> Chest Pain/Cardiac HPI Immunizations: IMMUNIZATION HX Immunizations Up to Date Yes History of Influenza Vaccine Yes Hx Pneumococcal Vaccination Yes ED Progress - Vital Signs Vital Signs: Vital Signs 09/06/16 09/06/16 09/06/16 07:21 07:44 07:57 Temperature 36.3 C L Pulse Rate 162 H 169 H 121 H Respiratory 17 24 H Rate Blood Pressure 152/62 152/62 116/57 O2 Sat by Pulse 94 95 Oximetry 09/06/16 08:47 Temperature Pulse Rate 90 Respiratory 20 Rate Blood Pressure 113/56 O2 Sat by Pulse 98 Oximetry - Progress/Reassessment Progress Note-Subjective: 09/06/16 09:09 I have reviewed the CXR which is non acute. I have reviewed the Chest CT report, which reports Bronchitis. Her heart rate is now in the 90s, and EKG show sinus rhythm with short SD, with occasional PACs. non acute. I interpreted the EKG myself. We will hold further fluids. We will hold further diltiazem.
[2016-09-06 08:16] LABS: Prothrombin Time (Patient) 11.9 Seconds (9.4-11.4)
[2016-09-06 08:18] LABS: INR 1.14 INR (0.90-1.10); Partial Thrombolplastin Time 29.2 Seconds (24-32)
[2016-09-06 08:26] LABS: Albumin * 3.3 gm/dl (3.4-5.0); Anion Gap 16.4 mmol/L (6.8-13.8); BUN/Creatinine Ratio 8.2 (9.0-21.6); Bilirubin, Total 0.6 mg/dL (0.0-1.1); Ca. Corrected For Albumin 8.9 mg/dL (8.4-10.2); Calcium * 8.7 mg/dL (7.9-10.9); Carbon Dioxide 21.6 mmol/L (24-32.6); TSH * 4.129 uIU/mL (0.358-3.74); Total Protein 6.2 gm/dL (6.2-8.2); Troponin I 0.086 ng/ml (0.00-0.10)
[2016-09-06] MEDS ORDERED: POTASSIUM CHLORIDE 20 MEQ TABLET.SA PO ONE (09:12)
[2016-09-06] MEDS ORDERED: POTASSIUM CHLORIDE 20 MEQ TABLET.SA ONE (09:21)
[2016-09-06] MEDS ORDERED: AZITHROMYCIN 250 MG TABLET PO ONE (10:02)
[2016-09-06] MEDS ORDERED: AZITHROMYCIN 250 MG TABLET ONE (10:19)
[2016-09-06] MEDS ORDERED: HYDROmorphone HCL 2 MG TABLET PO ONE (10:24)
[2016-09-06] MEDS ORDERED: HYDROmorphone HCL 2 MG TABLET ONE (10:33)
[2016-09-06 11:20] VITALS: BP 123/66
== END 2016-09-06 11:33 | disposition home or self-care (01) ==
LOC: ER 07:21
DX: J20.9 Acute bronchitis, unspecified (principal); E03.9 Hypothyroidism, unspecified; F41.1 Generalized anxiety disorder; I48.0 Paroxysmal atrial fibrillation; I47.1 Supraventricular tachycardia

== ENCOUNTER 2016-09-16 13:19 | Observation (INO) | payer MEDICARE, BC ==
[2016-09-16 14:29] LABS: Mean Corpuscular Hemoglobin 25.9 pg (27-31); Mean Corpuscular Hgb Conc 29.4 g/dl (32-36); Mean Platelet Volume 10.7 fl (6.0-9.5); Neutrophil % 64.2 % (42-75.0); Platelet Count 314 K/mm3 (150-450); Red Blood Count 2.59 M/mm3 (4.2-5.4); Red Cell Distribution Width 20.3 % (11.5-14.0); White Blood Count 9.3 K/mm3 (4.0-10.5)
[2016-09-16 14:31] LABS: Hematocrit 22.8 % (37.0-47.0); Hemoglobin 6.7 gm/dL (12.5-16.0)
--- NOTE | 2016-09-16 14:33 | ERNOTE ---
Medical Problem HPI - Narrative Date of Service: 09/16/16 - General Chief Complaint: General Assessment Time Seen by Provider: 09/16/16 13:35 Source: patient - pt complains of mild shortness of breath and fatigue. She has RA and was noted to have a Hb of 7 yesterday at her Tube Bender's office. she admits to being on Eliquis for A. fib and occasional bleeding from hemorrhoids, non e now. - Immun/Allergies/Home Medications Immunizations: IMMUNIZATION HX Immunizations Up to Date Yes History of Influenza Vaccine Yes Hx Pneumococcal Vaccination Yes Allergies/Adverse Reactions: Allergies chlorpheniramine [From Codeine Antitussive Cough] Allergy (Intermediate, Verified 09/06/16 07:59) hydrocodone [Hydrocodone] Allergy (Intermediate, Verified 09/06/16 07:59) hallucinations phenylephrine HCl [From Codeine Antitussive Cough] Allergy (Unknown, Verified 07:59) hydrocodone bitartrate [From Vicodin] Allergy (Verified 09/06/16 07:59) morphine Allergy (Verified 09/06/16 07:59) aspirin Adverse Reaction (Verified 09/06/16 07:59) codeine [Codeine] Adverse Reaction (Verified 09/06/16 07:59) Nausea promethazine Adverse Reaction (Verified 09/06/16 07:59) Other Home Medications: HOME MEDICATIONS Methotrexate Sodium [Methotrexate] 25 mg SQ Q7D 04/07/14 [Last Taken 06/05/16 09 :00] LORazepam [Ativan] 0.5 mg PO TID PRN #0 tablet 04/08/14 [Last Taken 06/08/16 06: 30] Pantoprazole Sodium [Protonix] 20 mg PO DAILY 03/17/15 [Last Taken 06/07/16 09: 00] Calc/D3/Mag/Zn/Ticket Machine Operator/[place] [Calcium 600 mg Plus Vit D Tab] 2 each PO DAILY [Last Taken Unknown] predniSONE [Prednisone] 3 mg PO DAILY 08/15/16 [Last Taken Unknown] Acetaminophen [Tylenol] 650 mg PO QID PRN #0 tablet 08/16/16 [Last Taken Unknown ] Amiodarone HCl [Cordarone] 200 mg PO DAILY #30 tablet 08/16/16 [Last Taken Unknown] Apixaban [Eliquis] 5 mg PO BID #60 tablet 08/16/16 [Last Taken Unknown] Atenolol [Tenormin] 25 mg PO BID #60 tablet 08/16/16 [Last Taken Unknown] Calcium Carbonate [Tums] 500 mg PO DAILY tab.chew 08/16/16 [Last Taken Unknown] Folic Acid 2 mg PO DAILY tablet 08/16/16 [Last Taken Unknown] Azithromycin [Zithromax] 250 mg PO DAILY #4 tablet 09/06/16 [Last Taken Unknown] HYDROmorphone HCL [Dilaudid] 0.5 tab PO TID PRN #10 tablet 09/06/16 [Last Taken Unknown] Levothyroxine Sodium [Synthroid] 50 mcg PO DAILY #30 tab 09/06/16 [Last Taken Unknown] Review of Systems - Review of Systems Constitutional: Present: no symptoms reported EYE: Present: no symptoms reported ENT: Present: no symptoms reported Respiratory: Present: See HPI Gastrointestinal/Abdominal: Present: See HPI Psych: Present: anxiety, other - extremely anxious - Patient's Past Medical History Patient History - Medical: Anxiety, Chronic Pain, Depression, GERD, Kidney stone , Rheumatoid Arthritis Patient History - Cardiac/Respiratory: Atrial Fibrillation, Hypertension Patient History - Cancer: No Hx of Cancer Patient History - Surgical Procedures: Cataracts, Colonoscopy, EGD, Other Patient History - Other: None - Family History Mother Family History - Medical: Alcohol Abuse Family History - Cardiac/Respiratory: CHF Father Family History - Medical: Alcohol Abuse Family History - Cardiac/Respiratory: CVA/Stroke, Myocardial Infarction Brother Family History - Medical: Alcohol Abuse, Renal Failure Family History - Cardiac/Respiratory: Hypertension, Pneumonia - Social History Living Situations: home Abuse History: No History of abuse Psych History: Hx of Anxiety Smoking Status: Never smoker Alcohol Use: none Drug Use: none - Immunizations Immunizations Up to Date: Yes Hx Pneumococcal Vaccination: Yes History of Influenza Vaccine: Yes Physical Exam - Physical Exam General Appearance: Present: wd/wn, alert, no apparent distress Ears, Nose, Throat: Present: normal ENT inspection, hearing grossly normal Neck: Present: normal inspection, nontender Respiratory: Present: no respiratory distress, normal breath sounds, chest nontender, lungs clear Cardiovascular/Chest: Present: regular rate, rhythm Rectal Exam: Present: nontender, normal rectal tone, other - two small deflated hemorrhoids noted, no active bleeding from rectum at this moment ED Progress - Results and Orders Patient's Lab Results:: I have reviewed the patient's lab results. - Vital Signs Patient's Vital Signs:: I have reviewed the patient's vital signs. Vital Signs: Vital Signs 09/16/16 13:29 Temperature 36.4 C L Pulse Rate 83 Respiratory 18 Rate Blood Pressure 120/53 O2 Sat by Pulse 100 Oximetry - Progress/Reassessment Chief Complaint: General Assessment Departure - Departure Clinical Impression: Anxiety and depression Anemia Qualifiers: Anemia type: unspecified type Qualified Code(s): D64.9 - Anemia, unspecified Disposition: [facility] Condition: Fair Referrals: Tiny Thakur MD [Primary Care Provider] -
[2016-09-16] MEDS ORDERED: LORazepam 0.5 MG TABLET PO PRN (17:03)
[2016-09-16] MEDS: PANTOPRAZOLE SODIUM 40 MG in NORMAL SALINE 100 ML IV SCH (17:16)
[2016-09-16 17:52] LABS: Folate 13.5 ng/mL (8.6-58.9)
[2016-09-16] MEDS: IPRATROPIUM BROMIDE 0.5 MG/2.5 ML VIAL.NEB IH SCH (18:33)
[2016-09-16 20:27] LABS: Iron 10 mcg/dL (35-120); Transferrin Sat. (% Sat.) 4 % (15-55)
--- NOTE | 2016-09-16 21:00 | HP ---
Chief Complaint - Chief Complaint Date of Service: 09/16/16 Time of Service: 20:25 Chief Complaint: Anemia History of Present Illness: 76 years old female adm to the hospital with reports of Hgb 7.0. PMH significant for Anxiety, depression, hypotension, A-fib ( on Eliquis), external hemorrhoids, RA and GERD. pt stated she is taking methotrexate for RA and was seen by Data Integration Architect and had blood work done. She was called while at home and informed that her Hgb was 7.0. She had noticed increased fatigue, lightheadedness and sometimes blood streak on toilet paper after bowel movement. Pt think it contributed from her external hemorrhoids. However she denies hematuria, hematemesis, black stool or any other signs of bleeding since she started on Eliquis a month ago for her A-fib. In ER Hgb/ Hct 6.7/22.8 She will be adm observation and transfused 2 unit PRBC. - Patient's Past Medical History Patient History - Medical: Anemia, Anxiety, Chronic Pain, Depression, GERD, Kidney stone, Osteoporosis, Rheumatoid Arthritis Patient History - Cardiac/Respiratory: Atrial Fibrillation, Hypertension Patient History - Cancer: No Hx of Cancer Patient History - Surgical Procedures: Cataracts, Colonoscopy, EGD, Other - Kidney stone extraction Patient History - Other: None - Family History Mother Family History - Medical: Alcohol Abuse Family History - Cardiac/Respiratory: CHF Father Family History - Medical: Alcohol Abuse Family History - Cardiac/Respiratory: CVA/Stroke, Myocardial Infarction Brother Family History - Medical: Alcohol Abuse, Renal Failure Family History - Cardiac/Respiratory: Hypertension, Pneumonia - Social History Living Situations: home Abuse History: No History of abuse Psych History: Hx of Anxiety, Hx of Depression Smoking Status: Never smoker Have you smoked in the past 12 months: No Do you dip or chew tobacco: No Patient requests Smoking Cessation Consult: No Initiate information on Smoking Cessation: No Alcohol Use: none Drug Use: none - Immunizations Immunizations Up to Date: Yes Hx Pneumococcal Vaccination: Yes History of Influenza Vaccine: Yes Review Of Systems (GEN) - Review of Systems Generalized/Overall Review: Present: Fatigue EENTM: Present: No Symptoms Reported Respiratory: Present: No Symptoms Reported Cardiac: Present: No Symptoms Reported Abdominal: Present: No Symptoms Reported Genitourinary: Present: No Symptoms Reported Musculoskeletal: Present: Joint Pain Neurological: Present: No Symptoms Reported Skin: Present: No Symptoms Reported Endocrine: Present: No Symptoms Reported Allergies/Adverse Reactions: Allergies Allergy/AdvReac Type Severity Reaction Status Date / Time chlorpheniramine Allergy Intermediate Verified 09/16/16 15:13 [From Codeine Antitussive Cough] hydrocodone [Hydrocodone] Allergy Intermediate hallucinati Verified 09/16/16 15: 13 ons promethazine HCl Allergy Intermediate Other Verified 09/16/16 15:48 [From Phenergan] phenylephrine HCl Allergy Unknown Verified 09/16/16 15:13 [From Codeine Antitussive Cough] hydrocodone bitartrate Allergy Verified 09/16/16 15:13 [From Vicodin] morphine Allergy Verified 09/16/16 15:13 aspirin AdvReac Verified 09/16/16 15:13 codeine [Codeine] AdvReac Nausea Verified 09/16/16 15:13 promethazine AdvReac Other Verified 09/16/16 15:13 Home Medications: HOME MEDICATIONS Methotrexate Sodium [Methotrexate] 25 mg IM Q7D 04/07/14 [Last Taken 06/05/16 09 :00] LORazepam [Ativan] 0.5 mg PO TID PRN #0 tablet 04/08/14 [Last Taken 06/08/16 06: 30] Pantoprazole Sodium [Protonix] 20 mg PO DAILY 03/17/15 [Last Taken 06/07/16 09: 00] predniSONE [Prednisone] 3 mg PO DAILY 08/15/16 [Last Taken Unknown] Amiodarone HCl [Cordarone] 200 mg PO DAILY #30 tablet 08/16/16 [Last Taken Unknown] Apixaban [Eliquis] 5 mg PO BID #60 tablet 08/16/16 [Last Taken Unknown] Atenolol [Tenormin] 25 mg PO BID #60 tablet 08/16/16 [Last Taken Unknown] Calcium Carbonate [Tums] 500 mg PO DAILY tab.chew 08/16/16 [Last Taken Unknown] Folic Acid 2 mg PO DAILY tablet 08/16/16 [Last Taken Unknown] Fluticasone Propionate [Flonase] 2 spray INH DAILY 09/16/16 [Last Taken Unknown] Ipratropium [place] [Atrovent Hfa] 2 puff IH QID 09/16/16 [Last Taken Unknown] Exam - Exam Vital Signs: Vital Signs - Last Taken Temp 37.3 C 09/16/16 16:45 Pulse 89 09/16/16 18:43 Resp 18 09/16/16 18:43 BP 149/69 09/16/16 16:45 Pulse Ox 97 09/16/16 18:33 Constitutional: Present: Alert, Oriented x3, Cooperative, Well developed, Well nourished, No distress, Elderly ENT Exam: Present: moist mucous membranes Eye Exam: bilateral eye: PERRL Neck: Present: full range of motion Back Exam: Present: normal inspection, no CVA tenderness, no vertebral tenderness Breasts: Present: Exam deferred Respiratory: Present: chest non-tender, lungs clear, normal breath sounds, no respiratory distress Cardiovascular/Chest: Present: normal peripheral pulses, regular rate, rhythm, no chest tenderness, no edema, no gallop Peripheral Pulses: dorsalis-pedis (R): 3+, dorsalis-pedis (L): 3+ Abdomen: Present: Normal bowel sounds, soft, nontender, nondistended /Rectal: Present: Exam deferred Extremity: Present: normal range of motion, non-tender, normal inspection, no pedal edema, no calf tenderness, other - Joint deformity secondary to RA Skin Exam: Present: warm/dry, no cyanosis, cool/dry, other - pale Neurologic: Present: oriented x 3 Appearance: Present: appropriate appearance, appropriate insight Eye contact: Present: cooperative, good eye contact Thoughts: Present: normal thought pattern Diagnostic Studies: Abnormal Lab Results 09/16/16 09/16/16 Range/Units 16:53 Unknown Lactate Dehydrogenase 254 H (81-234) U/L Crossmatch See Detail Laboratory Results WBC 9.3 K/mm3 (4.0-10.5) 09/16/16 14:04 RBC 2.59 M/mm3 (4.2-5.4) L 09/16/16 14:04 Hgb 6.7 gm/dL (12.5-16.0) L* 09/16/16 14:04 Hct 22.8 % (37.0-47.0) L* 09/16/16 14:04 MCV 88.0 fl (78-100) 09/16/16 14:04 MCH 25.9 pg (27-31) L 09/16/16 14:04 MCHC 29.4 g/dl (32-36) L 09/16/16 14:04 RDW 20.3 % (11.5-14.0) H 09/16/16 14:04 Plt Count 314 K/mm3 (150-450) 09/16/16 14:04 MPV 10.7 fl (6.0-9.5) H 09/16/16 14:04 Immature Gran % (Auto) 1.40 % (0.001-0.429) H 09/16/16 14:04 Immature Gran # (Auto) 0.13 K/mm3 (0.000-0.0310) H 09/16/16 14:04 Neutrophils % 64.2 % (42-75.0) 09/16/16 14:04 Lymphocytes % 21.9 % (20-51) 09/16/16 14:04 Monocytes % 11.9 % (0.0-9) H 09/16/16 14:04 Eosinophils % 0.2 % (0.0-3.0) 09/16/16 14:04 Basophils % 0.4 % (0.0-1.0) 09/16/16 14:04 Nucleated RBC % 0.0 k/mm3 (0-1) 09/16/16 14:04 Neutrophils # 6.0 K/mm3 (1.3-6.0) 09/16/16 14:04 Lymphocytes # 2.0 k/mm3 (1.5-3.5) 09/16/16 14:04 Monocytes # 1.1 k/mm3 (0.0-1.0) H 09/16/16 14:04 Eosinophils # 0.0 k/mm3 (0.0-0.7) 09/16/16 14:04 Absolute Basophils 0.0 k/mm3 (0.0-0.1) 09/16/16 14:04 Ferritin 16 ng/mL (8-252) 09/16/16 16:53 Lactate Dehydrogenase 254 U/L (81-234) H 09/16/16 16:53 Vitamin B12 313 pg/mL (193-986) 09/16/16 16:53 Folate 13.5 ng/mL (8.6-58.9) 09/16/16 16:53 Blood Type A Positive 09/16/16 Unknown Antibody Screen Negative 02/01/17 Unknown Crossmatch See Detail 09/16/16 Unknown 09/16/2016 CXR: No acute cardiopulmonary process Assessment/Plan - Narrative Narrative: Anemia possible due to contact lens blocker and cutter prednisone, methotrexate and eliquis use vs bleeding hemorrhoids On adm Hgb 6.7 Plan to transfuse 2 UPRBC and monitor H/H post transfusion Liver panel and Occult blood pending Iron panel reviewed and plan to continue with oral iron and folic acid upon discharge Hold Eliquis for now to determine potential source of blood loss. Hypertension- stable Continue with home dose of medications Monitor VS Q shift and during blood transfusion Chronic A-Fib Continue with home dose of amiodarone, rate stable Eliquis on hold in presence of anemia and pt reports of blood after bowel movement Constipation Stool softeners and Laxative PRN Rheumatoid arthritis - stable pt on home dose prednisone and methotrexate VTE ppx : SCD and encourage ambulation GI ppx: PPI - Assessment/Plan (1) Anemia Problem: Acute Qualifiers: Anemia type: unspecified type Qualified Code(s): D64.9 - Anemia, unspecified (2) Atrial fibrillation Problem: Chronic (3) Constipation Problem: Chronic (4) Hypertension Problem: Chronic Qualifiers: (5) Rheumatoid arthritis Problem: Chronic
[2016-09-16] MEDS: ATENOLOL 25 MG TABLET PO SCH (21:09)
[2016-09-17] MEDS: IPRATROPIUM BROMIDE 0.5 MG/2.5 ML VIAL.NEB IH SCH ×4 (06:04→18:22)
[2016-09-17 06:39] LABS: Hematocrit 29.5 % (37.0-47.0); Hemoglobin 9.4 gm/dL (12.5-16.0); Mean Corpuscular Hemoglobin 27.1 pg (27-31); Mean Corpuscular Hgb Conc 31.9 g/dl (32-36); Mean Platelet Volume 10.2 fl (6.0-9.5); Neutrophil # 8.4 K/mm3 (1.3-6.0); Neutrophil % 74.6 % (42-75.0); Platelet Count 255 K/mm3 (150-450); Red Blood Count 3.47 M/mm3 (4.2-5.4); Red Cell Distribution Width 17.6 % (11.5-14.0); White Blood Count 11.3 K/mm3 (4.0-10.5)
[2016-09-17] MEDS: PANTOPRAZOLE SODIUM 40 MG in NORMAL SALINE 100 ML IV SCH ×2 (06:51→18:39)
[2016-09-17 06:52] LABS: Anion Gap 12.2 mmol/L (6.8-13.8); Bilirubin Direct 0.3 mg/dL (0.0-0.3); Bilirubin, Total 1.3 mg/dL (0.0-1.1); Calcium * 8.4 mg/dL (7.9-10.9); Carbon Dioxide 23.5 mmol/L (24-32.6); Estimated Creat Clear 35.6; Potassium 3.7 mmol/L (3.4-4.6); Total Protein 5.8 gm/dL (6.2-8.2)
[2016-09-17] MEDS: predniSONE 1 MG TABLET PO SCH (08:55)
[2016-09-17] MEDS: AMIODARONE HCL 200 MG TABLET PO SCH (08:56)
[2016-09-17] MEDS: CALCIUM CARBONATE 500 MG TAB.CHEW PO SCH (08:56)
[2016-09-17] MEDS: ATENOLOL 25 MG TABLET PO SCH ×2 (08:56→20:30)
[2016-09-17] MEDS: FOLIC ACID 1 MG TABLET PO SCH (08:56)
[2016-09-17] MEDS: FLUTICASONE PROPIONATE 120 SPRAY INHALER NS SCH (08:58)
[2016-09-17] MEDS ORDERED: FERUMOXYTOL 30 MG/ML VIAL IV ONE (09:44)
[2016-09-17 10:14] LABS: Hemoglobin 9.5 gm/dL (12.5-16.0); Mean Cell Volume 85.7 fl (78-100); Mean Corpuscular Hemoglobin 27.1 pg (27-31); Mean Corpuscular Hgb Conc 31.7 g/dl (32-36); Platelet Count 258 K/mm3 (150-450); Red Cell Distribution Width 17.9 % (11.5-14.0); White Blood Count 10.1 K/mm3 (4.0-10.5)
[2016-09-17] MEDS ORDERED: IRON SUCROSE COMPLEX 500 MG in NORMAL SALINE 250 ML IV ONE (11:00)
[2016-09-17] MEDS: FERROUS SULFATE 325 MG TABLET PO SCH ×2 (12:43→16:41)
[2016-09-17] MEDS: SENNOSIDES/DOCUSATE SODIUM 1 TAB TABLET PO SCH ×2 (12:43→18:37)
--- NOTE | 2016-09-17 16:05 | PN ---
Subjective - Date and Time Seen Date: 09/17/16 Time: 11:00 Subjective Narrative: Patient seen and examined. No acute issues overnight. Patient resting comfortably in bed. Patient states that she did not get any sleep last night secondary to all the beeping from the IVs, blood transfusions, etc so she is very tired today. Otherwise, no new issues or complaints. Objective - Review of Systems Generalized/Overall Review: Reports: Fatigue EENTM: Reports: No Symptoms Reported Respiratory: Reports: No Symptoms Reported Cardiac: Reports: No Symptoms Reported Abdominal: Reports: No Symptoms Reported Genitourinary Symptoms: Reports: No Symptoms Reported Musculoskeletal Complaints: Reports: Joint Pain - chronic Neurological: Reports: No Symptoms Reported Skin: Reports: No Symptoms Reported Endocrine: Reports: No Symptoms Reported Misc: All systems neg except as marked - Vitals Vitals: Last Vital Signs Temp 37.3 C 09/17/16 11:57 Pulse 79 09/17/16 15:21 Resp 18 09/17/16 15:21 BP 137/67 09/17/16 11:57 Pulse Ox 93 09/17/16 15:11 - Abnormal Lab Findings Abnormal Lab Findings: Abnormal Lab Results 09/16/16 09/16/16 09/16/16 Range/Units 16:53 16:53 Unknown WBC (4.0-10.5) K/mm3 RBC (4.2-5.4) M/mm3 Hgb (12.5-16.0) gm/dL Hct (37.0-47.0) % MCHC (32-36) g/dl RDW (11.5-14.0) % MPV (6.0-9.5) fl Immature Gran % (Auto) (0.001-0.429) % Immature Gran # (Auto) (0.000-0.0310) K/mm3 Lymphocytes % (20-51) % Neutrophils # (1.3-6.0) K/mm3 Chloride (97-106) mmol/L Carbon Dioxide (24-32.6) mmol/L Est GFR (Non-Af Amer) (60-130) mL/min BUN/Creatinine Ratio (9.0-21.6) Iron 10 L (35-120) mcg/dL Transferrin % Sat 4 L (15-55) % Total Bilirubin (0.0-1.1) mg/dL Indirect Bilirubin (0.1-0.7) mg/dL Alkaline Phosphatase (50-170) U/L Lactate Dehydrogenase 254 H (81-234) U/L Total Protein (6.2-8.2) gm/dL Albumin (3.4-5.0) gm/dl Crossmatch See Detail 09/17/16 09/17/16 09/17/16 Range/Units 06:33 06:33 10:07 WBC 11.3 H D (4.0-10.5) K/mm3 RBC 3.47 L 3.50 L (4.2-5.4) M/mm3 Hgb 9.4 L 9.5 L (12.5-16.0) gm/dL Hct 29.5 L 30.0 L (37.0-47.0) % MCHC 31.9 L 31.7 L (32-36) g/dl RDW 17.6 H 17.9 H (11.5-14.0) % MPV 10.2 H 11.0 H (6.0-9.5) fl Immature Gran % (Auto) 1.20 H (0.001-0.429) % Immature Gran # (Auto) 0.14 H (0.000-0.0310) K/mm3 Lymphocytes % 14.9 L (20-51) % Neutrophils # 8.4 H (1.3-6.0) K/mm3 Chloride 110 H (97-106) mmol/L Carbon Dioxide 23.5 L (24-32.6) mmol/L Est GFR (Non-Af Amer) 57 L (60-130) mL/min BUN/Creatinine Ratio 8.0 L (9.0-21.6) Iron (35-120) mcg/dL Transferrin % Sat (15-55) % Total Bilirubin 1.3 H (0.0-1.1) mg/dL Indirect Bilirubin 1.0 H (0.1-0.7) mg/dL Alkaline Phosphatase 48 L (50-170) U/L Lactate Dehydrogenase (81-234) U/L Total Protein 5.8 L (6.2-8.2) gm/dL Albumin 3.0 L (3.4-5.0) gm/dl Crossmatch - Exam Constitutional: Present: Alert, Oriented x3, Cooperative, No distress ENT Exam: Present: moist mucous membranes, other - Conjuctival pallor which has improved since admission Respiratory: Present: lungs clear, normal breath sounds, no respiratory distress , no accessory muscle use Cardiovascular/Chest: Present: regular rate, rhythm, no edema Abdomen: Present: soft, nontender, nondistended Extremity: Present: no pedal edema, other - Chronic joint deformities secondary to RA Skin Exam: Present: warm/dry, pallor Neurologic: Present: alert, normal mood/affect, oriented x 3 Appearance: Present: appropriate appearance, appropriate insight Eye contact: Present: cooperative, good eye contact, normal speech Thoughts: Present: normal thought pattern, no apparent hallucination Assessment/Plan Plan Narrative: IMPRESSION AND PLAN: Acute on Chronic Anemia -Chronic anemia appears multifactorial from both iron deficiency and anemia of chronic disease -Acute drop in hemoglobin likely secondary to GI blood loss (bleeding hemorrhoids) in the setting of recent initiation of anticoagulation with Eliquis -Patient transfused 2 units PRBCs -Continue protonix 40mg IV BID Iron Deficiency -Order placed for IV iron -Start oral iron with ferrous sulfate 325mg PO TID with meals. To hopefully avoid constipation, also start Senna-S. -Recommend rechecking iron studies in 2-3 months. Atrial Fibrillation -Recently diagnosed in July 2016 -Hold eliquis -Monitor on telemetry Disposition: Plan to discharge home tomorrow if patient's hemoglobin remains stable on recheck in AM. - Problems/Diagnosis (1) Acute blood loss anemia Problem: Acute (2) Iron deficiency Problem: Acute (3) Atrial fibrillation Problem: Chronic
[2016-09-17] MEDS ORDERED: ONDANSETRON 4 MG TAB.RAPDIS PO PRN (16:06)
[2016-09-17] MEDS ORDERED: DEXTROMETHORPHAN POLISTIREX PO PRN (18:00)
[2016-09-18] MEDS: PANTOPRAZOLE SODIUM 40 MG in NORMAL SALINE 100 ML IV SCH (04:59)
[2016-09-18] MEDS: IPRATROPIUM BROMIDE 0.5 MG/2.5 ML VIAL.NEB IH SCH ×2 (06:09→10:25)
[2016-09-18] MEDS: predniSONE 1 MG TABLET PO SCH (08:40)
[2016-09-18] MEDS: FLUTICASONE PROPIONATE 120 SPRAY INHALER NS SCH (08:40)
[2016-09-18] MEDS: FERROUS SULFATE 325 MG TABLET PO SCH ×2 (08:40→13:16)
[2016-09-18] MEDS: AMIODARONE HCL 200 MG TABLET PO SCH (08:40)
[2016-09-18] MEDS: FOLIC ACID 1 MG TABLET PO SCH (08:40)
[2016-09-18] MEDS: SENNOSIDES/DOCUSATE SODIUM 1 TAB TABLET PO SCH ×2 (08:41→13:16)
[2016-09-18] MEDS: ATENOLOL 25 MG TABLET PO SCH (08:41)
[2016-09-18] MEDS: CALCIUM CARBONATE 500 MG TAB.CHEW PO SCH (08:41)
[2016-09-18] MEDS ORDERED: IRON SUCROSE COMPLEX 500 MG in NORMAL SALINE 250 ML IV ONE (09:00)
[2016-09-18 09:21] LABS: Hematocrit 31.9 % (37.0-47.0); Hemoglobin 9.8 gm/dL (12.5-16.0); Mean Cell Volume 86.7 fl (78-100); Mean Corpuscular Hemoglobin 26.6 pg (27-31); Mean Corpuscular Hgb Conc 30.7 g/dl (32-36); Platelet Count 266 K/mm3 (150-450); Red Blood Count 3.68 M/mm3 (4.2-5.4); Red Cell Distribution Width 18.3 % (11.5-14.0); White Blood Count 11.2 K/mm3 (4.0-10.5)
[2016-09-18 10:43] VITALS: BP 127/62
--- NOTE | 2016-09-18 11:09 | DS ---
(1) Acute blood loss anemia Problem: Acute (2) Anemia, chronic disease Problem: Chronic (3) Iron deficiency Problem: Acute (4) Atrial fibrillation Problem: Chronic Qualifiers: Atrial fibrillation type: paroxysmal Qualified Code(s): I48.0 - Paroxysmal atrial fibrillation Description of Stay: ADMISSION DATE: 09.16.2016 DISCHARGE DATE: 09.18.2016 ADMISSION HPI: 76 years old female adm to the hospital with reports of Hgb 7.0. PMH significant for Anxiety, depression, hypotension, A-fib ( on Eliquis), external hemorrhoids, RA and GERD. pt stated she is taking methotrexate for RA and was seen by Audio Video Repairer and had blood work done. She was called while at home and informed that her Hgb was 7.0. She had noticed increased fatigue, lightheadedness and sometimes blood streak on toilet paper after bowel movement. Pt think it contributed from her external hemorrhoids. However she denies hematuria, hematemesis, black stool or any other signs of bleeding since she started on Eliquis a month ago for her A-fib. In ER Hgb/ Hct 6.7/22.8 She will be adm observation and transfused 2 unit PRBC. PROBLEM BASED HOSPITAL COURSE: Acute on Chronic Anemia -Chronic anemia likely multifactorial including both iron deficiency and anemia of chronic disease -Acute drop in hemoglobin likely secondary to GI blood loss (bleeding hemorrhoids) in the setting of recent initiation of anticoagulation with Eliquis -Patient transfused 2 units of PRBCs during her admission and her hemoglobin remained stable following transfusion. -Home dose of PPI increased to hopefully help protect her stomach, especially since she is on daily steroids which can increase the risk of GI irritation, ulcers, etc. Iron Deficiency -Patient given 2 doses of IV iron during her admission. She was also started on oral iron as below. To hopefully avoid constipation, the patient was also started on Senna-S. -Consider rechecking iron studies in 2-3 months. Atrial Fibrillation -Recently diagnosed in July 2016 -Eliquis discontinued. Given her chronic anemia and admission requiring blood transfusions, patient may not be a great candidate for anticoagulants. Consider starting Plavix in the future (patient states she is allergic to aspirin). -Patient monitored on telemetry during her admission and she had no episodes of afib -Continue with home dose of amiodarone. Consider discontinuing in the future if patient remains in NSR. FOLLOW-UP APPOINTMENTS: PCP within 1-2 weeks. Recommend checking a CBC vs. hemogram vs. H&H at follow- up appointment. NEW OR CHANGED MEDICATIONS: Ferrous Sulfate 325mg PO TID with meals Shahana-S PO TID, hold for loose stools Protonix 40mg PO daily DISCONTINUED MEDICATIONS: Eliquis Procedures Performed: none Results and Findings: Laboratory Tests 09/15/16 09/16/16 09/16/16 13:56 06:55 06:55 Hgb 7.0 L* D Hct 24.0 L D Haptoglobin 95 Sodium Plasma Sodium Potassium Chloride Carbon Dioxide Anion Gap BUN Creatinine Est GFR (Non-Af Amer) BUN/Creatinine Ratio Random Glucose Calcium Iron TIBC Transferrin 241 Transferrin % Sat Ferritin Total Bilirubin Direct Bilirubin Indirect Bilirubin AST ALT Alkaline Phosphatase Lactate Dehydrogenase Total Protein Albumin Vitamin B12 Folate 09/16/16 09/16/16 09/16/16 14:04 16:53 16:53 Hgb 6.7 L* Hct 22.8 L* Haptoglobin Sodium Plasma Sodium Potassium Chloride Carbon Dioxide Anion Gap BUN Creatinine Est GFR (Non-Af Amer) BUN/Creatinine Ratio Random Glucose Calcium Iron 10 L TIBC 283 Transferrin Transferrin % Sat 4 L Ferritin 16 Total Bilirubin Direct Bilirubin Indirect Bilirubin AST ALT Alkaline Phosphatase Lactate Dehydrogenase 254 H Total Protein Albumin Vitamin B12 313 Folate 13.5 09/17/16 09/17/16 09/17/16 06:33 06:33 10:07 Hgb 9.4 L 9.5 L Hct 29.5 L 30.0 L Haptoglobin Sodium 142 Plasma Sodium 142 Potassium 3.7 D Chloride 110 H Carbon Dioxide 23.5 L Anion Gap 12.2 BUN 8 Creatinine 1.00 Est GFR (Non-Af Amer) 57 L BUN/Creatinine Ratio 8.0 L Random Glucose 104 Calcium 8.4 Iron TIBC Transferrin Transferrin % Sat Ferritin Total Bilirubin 1.3 H Direct Bilirubin 0.3 Indirect Bilirubin 1.0 H AST 31 ALT 38 Alkaline Phosphatase 48 L Lactate Dehydrogenase Total Protein 5.8 L Albumin 3.0 L Vitamin B12 Folate 09/18/16 09:16 Hgb 9.8 L Hct 31.9 L Haptoglobin Sodium Plasma Sodium Potassium Chloride Carbon Dioxide Anion Gap BUN Creatinine Est GFR (Non-Af Amer) BUN/Creatinine Ratio Random Glucose Calcium Iron TIBC Transferrin Transferrin % Sat Ferritin Total Bilirubin Direct Bilirubin Indirect Bilirubin AST ALT Alkaline Phosphatase Lactate Dehydrogenase Total Protein Albumin Vitamin B12 Folate Discharge Disposition: Home self care Disposition: Home self-care Condition: Stable Discharge Activity: Activity as tolerated Discharge Diet: Resume usual diet Referrals: Tiny Thakur MD [Primary Care Provider] - Additional Patient Instructions (free text): Follow-up with Tiny Thakur on September 29 at 9:45am. Prescriptions (Any new or edited meds): Ferrous Sulfate 325 mg PO TIDWM #90 tablet Pantoprazole Sodium 40 mg PO DAILY #30 tablet. Sennomunira/Docusate Sodium [Senokot-S] 1 tab PO TID #90 tablet Complete Home Medications List: Complete Home Medication List: Methotrexate Sodium [Methotrexate] 25 mg IM Q7D 04/07/14 LORazepam [Ativan] 0.5 mg PO TID PRN #0 tablet 04/08/14 predniSONE [Prednisone] 3 mg PO DAILY 08/15/16 Amiodarone HCl [Cordarone] 200 mg PO DAILY #30 tablet 08/16/16 Atenolol [Tenormin] 25 mg PO BID #60 tablet 08/16/16 Calcium Carbonate [Tums] 500 mg PO DAILY tab.chew 08/16/16 Folic Acid 2 mg PO DAILY tablet 08/16/16 Fluticasone Propionate [Flonase] 2 spray INH DAILY 09/16/16 Ipratropium [place] [Atrovent Hfa] 2 puff IH QID 09/16/16 Dextromethorphan Polistirex [Delsym] 5 ml PO Q12H PRN #0 btl 09/18/16 Ferrous Sulfate 325 mg PO TIDWM #90 tablet 09/18/16 Pantoprazole Sodium 40 mg PO DAILY #30 tablet. 09/18/16 Sennosides/Docusate Sodium [Senokot-S] 1 tab PO TID #90 tablet 09/18/16
[2016-09-18 14:19] LABS: Haptoglobin 95 mg/dL (43-212)
== END 2016-09-18 14:19 | disposition home or self-care (01) ==
LOC: ER 13:19 → MS 14:40
PROVIDERS: ADMIT Internal Medicine; ATTEND Internal Medicine
DX: D62 Acute posthemorrhagic anemia (principal); D63.8 Anemia in other chronic diseases classified elsewhere; D50.9 Iron deficiency anemia, unspecified; I48.91 Unspecified atrial fibrillation; K64.9 Unspecified hemorrhoids; I10 Essential (primary) hypertension; M06.9 Rheumatoid arthritis, unspecified
CPT/HCPCS: 36415; 36430; 71020; 80048; 80076; 82607; 82728; 82746; 83010; 83540; 83550; 83615; 84466; 85025; 85027; 86850; 86900; 93005; 94640; 96365; 96366; 96375; 99283; G0378; P9016

== ENCOUNTER 2016-11-13 07:33 | Day surgery (SDC) | payer MEDICARE, BC ==
--- NOTE | 2016-10-27 12:19 | HP ---
Chief Complaint - Chief Complaint Date of Service: 10/27/16 Chief Complaint: bleeding with bowel movements History of Present Illness: 76 year old female with a 3 month history of rectal bleeding, bright red, with BMs. The BMs are not hard, she strains normally and she has no pain with defecation. There is bright red blood in the water, some on the toilet paper. No clots. No black stools. She states she has had problems with hemorrhoids since her children were born, but never has there been this much bleeding. She was started on Elequist for Afib in July(?) after she states she developed the Afib after she had three months of severe coughing. She was admitted in early with aHgb of 7 (essentially asymptomatic) and she was transfused and sent home on iron. She always has been somewhat anemic she satees. She had been slowly dropping form the low 12's to the low 10's over the past three years. History of GERD and she has taken PPIs. She has been scoped 4 years ago and was told she had a polyp. She has been off the blood thinner for about a month and still notices the bleeding. Hgb have been stable though. She was seen by Dr Thakur and referred for a check. She has no history of bleeding , bruising and has not been on plavix or ASA. She is on steroids and Methotrexate for her severe RA. She has been on iron and Senna also since leaving the hospital. - Patient's Past Medical History Patient History - Medical: Anemia, Anxiety, Chronic Pain, Depression, GERD, Kidney stone, Osteoporosis, Rheumatoid Arthritis, Other - gallstones///colon polyp Patient History - Cardiac/Respiratory: Atrial Fibrillation, Hypertension Patient History - Cancer: No Hx of Cancer Patient History - Surgical Procedures: Cataracts, Colonoscopy, EGD, Other - Kidney stone extraction Patient History - Other: Chronic Steroid Therapy LMP (females 10-50): Menopausal - Family History Family History:: no untoward family reactions to anesthesia, no familial bleeding tendencies, no family history of clotting disorders - Family History Mother Family History - Medical: , Alcohol Abuse Family History - Cardiac/Respiratory: CHF Father Family History - Medical: , Alcohol Abuse Family History - Cardiac/Respiratory: CVA/Stroke, Myocardial Infarction Brother Family History - Medical: Alcohol Abuse, Renal Failure Family History - Cardiac/Respiratory: Hypertension, Pneumonia - Social History Living Situations: spouse Abuse History: No History of abuse Psych History: Hx of Anxiety, Hx of Depression Does anyone smoke in the home?: No Smoking Status: Never smoker Alcohol Use: none Drug Use: none - Immunizations Immunizations Up to Date: Yes Hx Pneumococcal Vaccination: Yes History of Influenza Vaccine: Yes Review Of Systems (GEN) - Review of Systems Generalized/Overall Review: Present: Fatigue. Absent: Weakness, Chills, Fever, Malaise, Weight loss, Weight gain EENTM: Absent: Blurred Vision, Double Vision, Nose Pain, Nose Congestion, Throat Pain Respiratory: Absent: Cough, Shortness of Breath, Orthopnea, Wheezing Cardiac: Present: Syncope. Absent: Chest Pain, Edema, Palpitations Abdominal: Present: Bright blood from rectum. Absent: Nausea, Vomiting, Hematemesis, Abdominal Pain, Constipation, Diarrhea, Melena Genitourinary: Absent: Burning, Itching, Urgency, Frequency Musculoskeletal: Present: Joint Pain, Joint Swelling. Absent: Back Pain, Muscle Pain, Neck Pain Neurological: Present: Anxiety. Absent: Headache, Parasthesia, Seizure, Tingling, Tremors Skin: Absent: Dryness, Lesions, Lumps, Bruising Immunizations: IMMUNIZATION HX Immunizations Up to Date Yes History of Influenza Vaccine Yes Hx Pneumococcal Vaccination Yes Allergies/Adverse Reactions: Allergies Allergy/AdvReac Type Severity Reaction Status Date / Time chlorpheniramine Allergy Intermediate Verified 09/16/16 15:13 [From Codeine Antitussive Cough] hydrocodone [Hydrocodone] Allergy Intermediate hallucinati Verified 09/16/16 15: 13 ons promethazine HCl Allergy Intermediate Other Verified 09/16/16 15:48 [From Phenergan] phenylephrine HCl Allergy Unknown Verified 09/16/16 15:13 [From Codeine Antitussive Cough] hydrocodone bitartrate Allergy Verified 09/16/16 15:13 [From Vicodin] morphine Allergy Verified 09/16/16 15:13 aspirin AdvReac Verified 09/16/16 15:13 codeine [Codeine] AdvReac Nausea Verified 09/16/16 15:13 promethazine AdvReac Other Verified 09/16/16 15:13 Home Medications: HOME MEDICATIONS Methotrexate Sodium [Methotrexate] 25 mg IM Q7D 04/07/14 [Last Taken 06/05/16 09 :00] LORazepam [Ativan] 0.5 mg PO TID PRN #0 tablet 04/08/14 [Last Taken 06/08/16 06: 30] predniSONE [Prednisone] 3 mg PO DAILY 08/15/16 [Last Taken Unknown] Amiodarone HCl [Cordarone] 200 mg PO DAILY #30 tablet 08/16/16 [Last Taken Unknown] Atenolol [Tenormin] 25 mg PO BID #60 tablet 08/16/16 [Last Taken Unknown] Calcium Carbonate [Tums] 500 mg PO DAILY tab.chew 08/16/16 [Last Taken Unknown] Folic Acid 2 mg PO DAILY tablet 08/16/16 [Last Taken Unknown] Fluticasone Propionate [Flonase] 2 spray INH DAILY 09/16/16 [Last Taken Unknown] Ipratropium [place] [Atrovent Hfa] 2 puff IH QID 09/16/16 [Last Taken Unknown] Dextromethorphan Polistirex [Delsym] 5 ml PO Q12H PRN #0 btl 09/18/16 [Last Taken Unknown] Ferrous Sulfate 325 mg PO TIDWM #90 tablet 09/18/16 [Last Taken Unknown] Pantoprazole Sodium 40 mg PO DAILY #30 tablet. 09/18/16 [Last Taken Unknown] Sennosides/Docusate Sodium [Senokot-S] 1 tab PO TID #90 tablet 09/18/16 [Last Taken Unknown] Ferrous Sulfate [Iron] 325 mg PO TID 10/27/16 [Last Taken Unknown] Exam - Exam Vital Signs: Vital Signs - Last Taken Temp 36.8 C 10/27/16 Pulse 78 Resp 15 BP 127/70 10/27/16 Pulse Ox 66kg Constitutional: Present: Alert, Oriented x3, Cooperative, Other - uses cane, obvious arthritis deformities ENT Exam: Present: normal ENT inspection Eye Exam: bilateral eye: normal inspection Breasts: Present: Exam deferred Respiratory: Present: chest non-tender, lungs clear, normal breath sounds, no respiratory distress, no accessory muscle use Cardiovascular/Chest: Present: normal peripheral pulses, regular rate, rhythm, no edema, no murmur Abdomen: Present: Normal bowel sounds, soft, nontender, nondistended /Rectal: Present: External genitalia normal, hemorrhoids - no external, two internal,no bleeding, Other - anterior chronic fissure?? Extremity: Present: normal range of motion, non-tender, other - arthitic changes Skin Exam: Present: normal color, warm/dry, no cyanosis. Absent: jaundice Neurologic: Present: no motor/sensory deficits, alert, normal mood/affect Appearance: Present: appropriate appearance, appropriate insight Eye contact: Present: cooperative, good eye contact, normal speech Thoughts: Present: normal thought pattern, no apparent hallucination Assessment/Plan - Narrative Narrative: We discussed anemia. We discussed the making and losing of blood. With her history and multiple medications and medical problems, she may have a combination of problems. Perhaps the hemorrhoids were bleeding more on the Elequist, but was that enough to bleed her down to 7? She does not want her stomach scoped. She may have other reasons for BRB other than hemorrhoids. Today 's exam showed the mild internal hemorrhoids, that minimally prolapsed with straining. They did not bleed today. I believe with her Hx of polyps and the fact it has been four years, then we should proceed with a colonoscopy and possible biopsy/polypectomy. But also proceed with banding as needed. If her Hgb continue to drop and we find no source, she may need upper scope and capsule endoscoopy. She may need further work up of the anemia and treatment based on those findings. Her chronic illnesses may be contributing to the anemia. She agrees. She will not agree to a normal prep, so we are going to try with Miralax, which she has at home. We will check her Hgb on the morning of the scope (two weeks from now). - Assessment/Plan (1) Acute blood loss anemia Problem: Acute (2) Anemia, chronic disease Problem: Chronic (3) Rheumatoid arthritis Problem: Chronic Qualifiers: Rheumatoid arthritis location: hand Rheumatoid factor presence: unspecified presence Laterality: bilateral Qualified Code(s): M06.9 - Rheumatoid arthritis, unspecified
[~2016-11-13 07:33] MED LIST: RINGERS SOLUTION,LACTATED 1,000 ML IV PRN
--- OUTSIDE RECORDS SUMMARY | 2016-11-13 07:37 | XMS REPORT | Continuity of Care Document ---
:1940 Author Organization [facility] ([facility]) Address [address] [place] [address] Phone [phone] Care Team Providers Name Role Phone Tiny Thakur Primary Care Provider [phone] Source Comments This disclosure is being made pursuant to the Care Everywhere program, applicable federal and state laws, and may not contain all informaitonavailable regarding this patient.[facility] ([facility]) Active Allergies and Adverse Reactions Allergen Noted Date Severity Reactions Comments Codeine Nausea & Vomiting,Dizziness Hydrocodone-Acetaminophen 03/23/2013 Nausea & Vomiting Morphine 03/23/2013 Nausea & Vomiting Promethazine 06/19/2014 Mental status changes Current Medications Prescription Sig. Disp. Refills Start Date End Date Status LORazepam 0.5 mg Take 0.5 mg by mouth Active tablet at bedtime as needed. atenolol 25 mg Take 25 mg by mouth Active tablet daily. calcium citrate PO Take 1 tablet by Active mouth 2 times daily. pantoprazole 20 mg 5 08/06/2015 Active EC tablet predniSONE 5 mg Take 1.5 tablets 45 tablet 5 10/07/2015 Active tablet (7.5 mg total) by mouth daily Use in combination with 1 mg tablets to control disease. tuberculin syringe Inject 1 Each by 12 Syringe 3 10/31/2015 Active w/ needle injection every (TUBERCULIN week. SYRINGE) 1 mL 27 g x 1/2" ferrous gluconate Take 324 mg by mouth Active 324 mg (38 mg iron) daily. tablet folic acid 1 mg Take 2 tablets (2 mg 90 tablet 11 02/05/2016 Active tablet total) by mouth daily. predniSONE 1 mg Take 4 tablets (4 mg 120 tablet 11 02/05/2016 Active tablet total) by mouth daily. Taper as directed fluticasone 50 as needed. 3 05/15/2016 Active mcg/Actuation nasal spray methotrexate 25 Inject 1 mL (25 mg 20 mL 3 07/16/2016 Active mg/mL injection total) subcutaneously every week. teriparatide Inject 0.08 mL (20 4 Syringe 3 10/12/2016 Active (FORTEO) 20 mcg total) mcg/dose injection subcutaneously pen daily. Active Problems Problem Noted Date Cervical Anterolisthesis 05/26/2016 Overview: Neurosurgery 04/2016 - no Sx; consider MRI/surgery if Neurologic symptoms occur Gastroesophageal reflux disease 05/26/2016 Urinary tract infection, chronic (due to stones) 08/22/2013 Near syncope 05/09/2013 Overview: 04/28 - EEG - mildly abnormal with occasional central sharp waves c/w right central dysfunction. 04/28 - Head CT showed no acute intracranial abnormality and stable scattered chronic microvascular ischemic white matter disease. Thought due to UTI and hypotension. Anxiety 05/04/2013 Cataract 05/03/2012 Osteoporosis 04/01/2009 Overview: DEXA: 04/2011; 08/2012 (hip T -2.6 and spine T -2.2) FRAX hip 7.7% and major 22% 2013 - kyphoplasty T7 and T11 Bilateral fractures of mid-femur - just fell down. Therapy: Alendronate (1997 - 2009) Ibandronate (10/2011 - 2012) Hypertension 04/01/2009 Murmur, heart 04/01/2009 Overview: Echo (2012) mod LVH; Aortic sclerosis Esophageal Ulcer (11/20) 04/01/2009 Renal Lithiasis (11/20) 04/01/2009 Rheumatoid arthritis 06/29/2006 Overview: Diagnosed 1979; RF(+) Wears leather lacers on her ankles Therapy: Methotrexate ( - 2012; changed to inj 10/29 - Hydroxychloroquine ( - 2012) SSZ 2014 - caused GI Resolved Problems Problem Noted Date Resolved Date UTI (urinary tract infection) 05/09/2013 08/22/2013 Overview: 04/28 - frequent. 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 Avani Woodard Chief Comp: Medication Assistance Program 10/12/2016 Orders Only Med Endocrinology [facility] Dx: Hanna Ritter MD (Primary Dx) 09/18/2016 Telephone Med Rheumatology Gigi Arita MD 09/15/2016 Telephone Med Rheumatology Gigi Arita Chief Comp: Hao Ritter MD 08/18/2016 Telephone Med Endocrinology Lary Wood Chief Comp: Patient MD Riya Concern 08/18/2016 Orders Only Care Coordination Tiny Thakur Immunizations Name Dates Previously Given Next Due Influenza, PF 05/03/2012 Influenza, unspecified 05/10/2015,05/16/2014,05/16/2013,06/16,05/30/2010,06/30/2008,06/24/20 07,06/16/2006,06/05/2005 Pneumococcal Conjugate, PCV13 (Prevnar 10/31/2015 13) Pneumococcal, unspecified 06/16/2005 Social History Tobacco Use Types Packs/Day Years Used Date Never Smoker Smokeless Tobacco: Never Used Tobacco Cessation:Counseling Given: Yes Comments: Alcohol Use Drinks/Week oz/Week Comments No Last Filed Vital Signs Vital Sign Reading Time Taken Blood Pressure 137/64 11/04/2016 2:16 PM CDT Pulse 59 11/04/2016 2:16 PM CDT Temperature 36.8 C (98.2 F) 11/04/2016 2:16 PM CDT Respiratory Rate - - Height 1.54 m (5' 0.63") 11/04/2016 2:16 PM CDT Weight 66.2 kg (145 lb 15.1 oz) 11/04/2016 2:16 PM CDT Body Mass Index 27.91 11/04/2016 2:16 PM CDT Oxygen Saturation 99% 05/26/2016 9:40 AM CDT Plan of Care Date Type Specialty Providers Description 11/25/2016 Appointment Med Rheumatology Gigi Arita MD [address] [place] [address] [phone] (Fax) Subj: Appointment Louise Alvarado ARNP [address] [place] [address] [phone] (Fax) Scheduled 11/10/2017 Appointment [facility] Kaci Ventura, Subj: Appointment Scheduled [address] [place] [address] [phone] (Fax) 11/10/2017 Appointment Med Endocrinology Lary Wood Subj: Appointment MD Riya Scheduled [address] [place] [address] [phone] (Fax) Health Maintenance Due Date Last Done Comments Hepatitis B Vaccine (1 of 3 1940 - Primary Series) Tdap Vaccine 1951 Lipid Disorder Screening 1958 Td Vaccine 1958 Colonoscopy 01/03/1989 Zoster Vaccine 1999 Pneumococcal Vaccine (2 of 10/30/2016 10/31/2015 2 - PPSV23) Mammogram 10/31/2016 11/01/2015, 11/01/2015 (Completed outside this hospital or clinic) Osteoporosis Screening (DXA Completed 02/05/2016, 08/23/2013, Additional history Bone Density) 05/05/2011 exists Influenza Vaccine: Seasonal Addressed 05/27/2016 (Completed Overridden with the outside this hospital intention of not or clinic), 05/10/2015, completing the topic, 05/16/2014 Additional history exists Results from Last 3 Months EXTERNAL MISCELLANEOUS LAB (10/13/2016) Component Value Range Ext WBC Count 7.8 4.0-10.5 K/MM3 Ext Hemoglobin 12.2(A) 12.5-16.0 G/DL Ext MCV (Mean Corpuscular Volume) 95.1 78-100 FL Ext Platelet Count 207 150-450 K/MM3 Ext Creatinine 0.85 0.4-1.4 MG/DL Ext Albumin 3.8 3.4-5.0 G/DL Ext ALT 39 19-67 U/L Ext AST 50(A) 0-48 U/L Ext Hematocrit 40.4 37-47 %
[2016-11-13 07:50] LABS: Hematocrit 41.1 % (37.0-47.0); Hemoglobin 12.7 gm/dL (12.5-16.0); Mean Corpuscular Hemoglobin 30.6 pg (27-31); Mean Corpuscular Hgb Conc 30.9 g/dl (32-36); Mean Platelet Volume 11.6 fl (6.0-9.5); Neutrophil # 6.8 K/mm3 (1.3-6.0); Neutrophil % 76.6 % (42-75.0); Platelet Count 254 K/mm3 (150-450); Red Blood Count 4.15 M/mm3 (4.2-5.4); Red Cell Distribution Width 20.4 % (11.5-14.0); White Blood Count 8.9 K/mm3 (4.0-10.5)
[2016-11-13] MEDS ORDERED: RINGERS SOLUTION,LACTATED 1,000 ML IV ONE (08:33)
[2016-11-13] MEDS ORDERED: RINGERS SOLUTION,LACTATED 1,000 ML IV PRN (09:43)
--- NOTE | 2016-11-13 09:46 | OR ---
Operative Report - Dictated Report Narrative: DATE OF PROCEDURE: 11/13/2016 PREOPERATIVE DIAGNOSIS: #1 anemia with rectal bleeding, probable hemorrhoids POSTOPERATIVE DIAGNOSIS: #1 extensive diverticulosis with no signs of bleeding # 2 internal hemorrhoid, not actively bleeding #3 anal fissure #4 external hemorrhoids OPERATION: Colonoscopy with banding of internal hemorrhoid SURGEON: Vargas Houston M.D. [facility] ANESTHESIA : Mikael Emmanuel CRNA sedation INDICATIONS: This is a 76 year old female who presents for a history of profound anemia, which has resolved itself with transfusion and iron, but she still has intermittent rectal bleeding, has hemorrhoids, last colonoscopy was done a few years ago in [place] and I am uncertain if she had polyps but she did have diverticulosis. On examination the office she does have internal/ external hemorrhoids, which are not bleeding, and she refuses an EGD for workup of the anemia. I have discussed the risks, benefits, indications, and contraindications for colonoscopy with the possibility of biopsy and/or polypectomy. She understands, agrees, and wishes to proceed. She has undergone a MiraLAX prep and has tolerated it well, she refuses the Suprep. PROCEDURE: The patient was brought to the operating theater and placed into the left lateral decubitus position. The patient underwent sedation per anesthesia , and a digital rectal exam was performed. This was noted to show primarily external hemorrhoids, partial prolapsing internal hemorrhoids with digital manipulation, and a small amount of blood. The Olympus video colonoscope was introduced and advanced into the rectum. The rectum was normal in appearance, other than a single column a prominent vein. The scope was then advanced through the sigmoid, where extensive diverticular disease was noted. The scope was then advanced to the cecum using standard reduction techniques. The ileocecal valve was noted. The prep appeared to be good with a [place] prep score of 7 (poorer prep in the right and transverse colon but better in the descending and sigmoid colon). The scope was withdrawn slowly as the ascending, transverse, descending, and sigmoid colon were examined in a circumferential fashion. Diverticulosis was noted even in the right colon but much less extensive than the left. The scope was brought back into the rectum where it was retroflexed in the lower rectum was examined. There was a fissure noted, that was not bleeding, and a fairly prominent internal hemorrhoid. The air was decompressed, and the scope was then removed. Withdrawal time was 11-12 minutes. The bullet anoscope was then introduced in the anus was examined circumferentially and the single internal hemorrhoid was noted, however the fissure then began bleeding with the entry of the anus scope. Pressure was held with gauze on this site, while the internal hemorrhoid was banded. Gelfoam was placed through the anal canal and the patient was awakened. POSTOPERATIVE CONDITION: The patient was awakened and taken to the ambulatory surgery center in good condition. No complications were encountered. FINDINGS: Anal fissure, most likely cause of bleeding, but I doubt is source of anemia. Internal/external hemorrhoids. Extensive diverticulosis, no signs of polyps, no bleeding noted throughout the colon. Specimens: None EBL: 0 The findings were discussed with the patient and her . I do not recommend a follow-up colonoscopy for screening purposes given her age. I discussed hemorrhoid with her, in particular that if she has persistent bleeding most likely she would need a full hemorrhoidectomy. Conservative management for the fissure.
[2016-11-13 11:04] VITALS: BP 143/64
== END 2016-11-13 07:34 | disposition home or self-care (01) ==
LOC: AMB 07:33
PROVIDERS: ATTEND Surgery
PROC: 06LY4CC Occlusion of Hemorrhoidal Plexus with Extraluminal Device, Percutaneous Endoscopic Approach (ICD-10-PCS; principal; 2016-11-13 08:55)
DX: K57.30 Diverticulosis of large intestine without perforation or abscess without bleeding (principal); D64.9 Anemia, unspecified; K64.8 Other hemorrhoids; K60.2 Anal fissure, unspecified; K64.4 Residual hemorrhoidal skin tags; I10 Essential (primary) hypertension; I48.91 Unspecified atrial fibrillation; K21.9 Gastro-esophageal reflux disease without esophagitis; M06.9 Rheumatoid arthritis, unspecified; M81.0 Age-related osteoporosis without current pathological fracture; F41.9 Anxiety disorder, unspecified; Z68.27 Body mass index [BMI] 27.0-27.9, adult

== ENCOUNTER 2017-02-24 05:43 | Emergency (ER) | payer MEDICARE, BC ==
[2017-02-24] MEDS ORDERED: ALBUTEROL SULFATE 2.5 MG/3 ML VIAL.NEB IH ONE (06:05)
[2017-02-24] MEDS ORDERED: ALBUTEROL SULFATE 2.5 MG/0.5 ML VIAL.NEB IH ONE (06:08)
--- NOTE | 2017-02-24 06:16 | ERNOTE ---
Dyspnea - General Presenting Symptoms: shortness of breath Time Seen by Provider: 02/24/17 05:59 - Immun/Allergies/Home Medications Immunizations: IMMUNIZATION HX Immunizations Up to Date Yes History of Influenza Vaccine Yes Hx Pneumococcal Vaccination Yes Allergies/Adverse Reactions: Allergies chlorpheniramine [From Codeine Antitussive Cough] Allergy (Intermediate, Verified 02/24/17 05:52) dizzy, vomiting hydrocodone [Hydrocodone] Allergy (Intermediate, Verified 02/24/17 05:52) hallucinations hydrocodone bitartrate [From Vicodin] Allergy (Intermediate, Verified 02/24/17 05:52) nausea, vomiting, dizzy morphine Allergy (Intermediate, Verified 02/24/17 05:52) nause, vomiting, dizzy phenylephrine HCl [From Codeine Antitussive Cough] Allergy (Intermediate, Verified 02/24/17 05:52) dizzy, vomiting promethazine HCl [From Phenergan] Allergy (Intermediate, Verified 02/24/17 05:52 ) dizzy, vomiting aspirin Adverse Reaction (Intermediate, Verified 02/24/17 05:52) "affected liver" codeine [Codeine] Adverse Reaction (Intermediate, Verified 02/24/17 05:52) Nausea, vomiting, dizzy promethazine Adverse Reaction (Intermediate, Verified 02/24/17 05:52) dizzy, vomiting Home Medications: HOME MEDICATIONS Methotrexate Sodium [Methotrexate] 25 mg IM Q7D 04/07/14 [Last Taken 06/05/16 09 :00] LORazepam [Ativan] 0.5 mg PO TID PRN #0 tablet 04/08/14 [Last Taken 06/08/16 06: 30] predniSONE [Prednisone] 2 mg PO DAILY 08/15/16 [Last Taken Unknown] Pantoprazole Sodium 40 mg PO DAILY #30 tablet. 09/18/16 [Last Taken Unknown] Sennosides/Docusate Sodium [Senokot-S] 1 tab PO TID #90 tablet 09/18/16 [Last Taken Unknown] Ferrous Sulfate [Iron] 325 mg PO BID 10/27/16 [Last Taken Unknown] Amiodarone HCl [Cordarone] 200 mg PO DAILY 11/13/16 [Last Taken Unknown] Atenolol [Tenormin] 25 mg PO BID 11/13/16 [Last Taken 11/12/16 20:00] Calcium Carbonate [Tums] 500 mg PO DAILY 11/13/16 [Last Taken Unknown] Fluticasone Propionate [Flonase Allergy Relief] 2 spray IH DAILY 11/13/16 [Last Taken Unknown] Benzonatate 100 mg PO QID PRN #15 capsule 02/24/17 [Last Taken Unknown] Folic Acid 1 mg PO DAILY 02/24/17 [Last Taken Unknown] Teriparatide [Forteo] 2.4 ml SQ DAILY 02/24/17 [Last Taken Unknown] - History of Present Illness Narrative: pt has had a cough for a week. She saw her PCP last week and was placed on antibiotics. She continues to worsen. Having coughing spells that occasionally cause her to vomit. Severity: moderate Initiating event: Reports: upper resp illness Frequency of episodes: Reports: occassional episodes - usually once a year but this year it has happened twice Modifying Factors - (Improves): Reports: nothing Modifying Factors (Worsens): Reports: activity, coughing Review of Systems - Review of Systems Constitutional: Present: fatigue. Absent: fever, chills EYE: Present: no symptoms reported ENT: Present: nasal drainage - mild and mostly clear Respiratory: Present: See HPI Cardiology: Absent: chest pain Gastrointestinal/Abdominal: Present: vomiting - due to coughing at times. Absent: nausea Genitourinary: Present: no symptoms reported Musculoskeletal: Present: no symptoms reported Skin: Present: no symptoms reported Neurological: Present: no symptoms reported Endocrine: Present: no symptoms reported Hematologic/Lymphatic: Present: no symptoms reported Psych: Present: no symptoms reported - Patient's Past Medical History Patient History - Medical: Anemia, Anxiety, Chronic Pain, Depression, GERD, Kidney stone, Osteoporosis, Rheumatoid Arthritis, Other Patient History - Cardiac/Respiratory: Atrial Fibrillation, Hypertension, Other Patient History - Cancer: No Hx of Cancer Patient History - Surgical Procedures: Cataracts, Colonoscopy, EGD, Other Patient History - Other: Chronic Steroid Therapy - Family History Mother Family History - Medical: , Alcohol Abuse Family History - Cardiac/Respiratory: CHF Family History - Cancer: No pertinent family hx Father Family History - Medical: , Alcohol Abuse Family History - Cardiac/Respiratory: CVA/Stroke, Myocardial Infarction Family History - Cancer: No pertinent family hx Brother Family History - Medical: Alcohol Abuse, Renal Failure Family History - Cardiac/Respiratory: Hypertension, Pneumonia Family History - Cancer: No pertinent family hx - Social History Living Situations: home Abuse History: No History of abuse Psych History: Hx of Anxiety, Hx of Depression, Current tx/ever been on anti- depressants or anti-anxiety meds Does anyone smoke in the home?: No Smoking Status: Never smoker Alcohol Use: none Drug Use: none - Immunizations Immunizations Up to Date: Yes Hx Pneumococcal Vaccination: Yes History of Influenza Vaccine: Yes Physical Exam - Physical Exam General Appearance: Present: wd/wn, alert, mild distress Head Exam: Present: normal inspection, no evidence of injury Eye Exam: Normal inspection: bilateral Ears, Nose, Throat: Present: normal ENT inspection Neck: Present: normal inspection, nontender Respiratory: Present: no respiratory distress, no accessory muscle use, decreased breath sounds, wheezing - occasional Cardiovascular/Chest: Present: regular rate, rhythm, no murmur Gastrointestinal/Abdominal: Present: normal bowel sounds, nontender, nondistended, soft Back Exam: Present: other - increased kyphosis. Absent: vertebral tenderness Extremity Exam: Present: normal inspection, normal range of motion, no edema Neurological Exam: Present: alert, oriented Skin Exam: Present: normal color, warm/dry Lymphatic Exam: Present: no adenopathy ED Progress - Vital Signs Vital Signs: Vital Signs 02/24/17 05:47 Temperature 37.4 C Pulse Rate 73 Respiratory 20 Rate Blood Pressure 112/71 O2 Sat by Pulse 96 Oximetry - X-Ray X-Ray #1 X-Ray: chest Interpretation: Interp. by me X-ray Comments: nothing acute, no infiltrate or effusion, cardiac silhouette normal - Progress/Reassessment Chief Complaint: Dyspnea Departure Clinical Impression: Bronchitis - Departure Disposition: Home Follow Up Needed Condition: Fair Instructions: Acute Bronchitis, [id number] Additional Instructions: See your regular doctor in follow up if not improving Referrals: Tiny Thakur MD [Primary Care Provider] - Prescriptions: Benzonatate 100 mg PO QID PRN #15 capsule PRN Reason: Cough
[2017-02-24 06:28] LABS: Hematocrit 38.7 % (37.0-47.0); Hemoglobin 12.9 gm/dL (12.5-16.0); Mean Cell Volume 94.4 fl (78-100); Mean Corpuscular Hemoglobin 31.5 pg (27-31); Mean Corpuscular Hgb Conc 33.3 g/dl (32-36); Mean Platelet Volume 10.4 fl (6.0-9.5); Neutrophil # 6.7 K/mm3 (1.3-6.0); Neutrophil % 80.9 % (42-75.0); Platelet Count 205 K/mm3 (150-450); Red Cell Distribution Width 15.4 % (11.5-14.0); White Blood Count 8.3 K/mm3 (4.0-10.5)
[2017-02-24 07:01] LABS: Albumin * 3.7 gm/dl (3.4-5.0); BUN/Creatinine Ratio 12.9 (9.0-21.6); Bilirubin, Total 0.6 mg/dL (0.0-1.1); Ca. Corrected For Albumin 9.5 mg/dL (8.4-10.2); Calcium * 9.6 mg/dL (7.9-10.9); Carbon Dioxide 23.2 mmol/L (24-32.6); Potassium 4.2 mmol/L (3.4-4.6)
[2017-02-24] MEDS ORDERED: BENZONATATE 100 MG CAPSULE PO ONE ×2 (07:24→07:26)
[2017-02-24 08:19] VITALS: BP 154/71
[2017-02-25 15:43] LABS: T4 Free * 1.5 ng/dL (0.76-1.46); TSH * 2.875 uIU/mL (0.358-3.74)
== END 2017-02-24 08:30 | disposition home or self-care (01) ==
LOC: ER 05:43
DX: J20.9 Acute bronchitis, unspecified (principal)

== ENCOUNTER 2017-05-30 11:14 | Emergency (ER) | payer MEDICARE, BC ==
[2017-05-30 11:33] VITALS: BP 170/78
[2017-05-30] MEDS ORDERED: ACETAMINOPHEN 500 MG TABLET PO ONE (11:37)
--- NOTE | 2017-05-30 11:38 | ERNOTE ---
Medical Problem HPI - General Chief Complaint: General Assessment Time Seen by Provider: 05/30/17 11:27 Source: patient Exam Limitations: no limitations - Immun/Allergies/Home Medications Immunizations: IMMUNIZATION HX Immunizations Up to Date Yes History of Influenza Vaccine Yes Hx Pneumococcal Vaccination Yes Allergies/Adverse Reactions: Allergies chlorpheniramine [From Codeine Antitussive Cough] Allergy (Intermediate, Verified 02/24/17 05:52) dizzy, vomiting hydrocodone [Hydrocodone] Allergy (Intermediate, Verified 02/24/17 05:52) hallucinations hydrocodone bitartrate [From Vicodin] Allergy (Intermediate, Verified 02/24/17 05:52) nausea, vomiting, dizzy morphine Allergy (Intermediate, Verified 02/24/17 05:52) nause, vomiting, dizzy phenylephrine HCl [From Codeine Antitussive Cough] Allergy (Intermediate, Verified 02/24/17 05:52) dizzy, vomiting promethazine HCl [From Phenergan] Allergy (Intermediate, Verified 02/24/17 05:52 ) dizzy, vomiting aspirin Adverse Reaction (Intermediate, Verified 02/24/17 05:52) "affected liver" codeine [Codeine] Adverse Reaction (Intermediate, Verified 02/24/17 05:52) Nausea, vomiting, dizzy promethazine Adverse Reaction (Intermediate, Verified 02/24/17 05:52) dizzy, vomiting Home Medications: HOME MEDICATIONS Methotrexate Sodium [Methotrexate] 25 mg IM Q7D 04/07/14 [Last Taken 06/05/16 09 :00] LORazepam [Ativan] 0.5 mg PO TID PRN #0 tablet 04/08/14 [Last Taken 06/08/16 06: 30] predniSONE [Prednisone] 2 mg PO DAILY 08/15/16 [Last Taken Unknown] Pantoprazole Sodium 40 mg PO DAILY #30 tablet. 09/18/16 [Last Taken Unknown] Sennosides/Docusate Sodium [Senokot-S] 1 tab PO TID #90 tablet 09/18/16 [Last Taken Unknown] Ferrous Sulfate [Iron] 325 mg PO BID 10/27/16 [Last Taken Unknown] Amiodarone HCl [Cordarone] 200 mg PO DAILY 11/13/16 [Last Taken Unknown] Atenolol [Tenormin] 25 mg PO BID 11/13/16 [Last Taken 11/12/16 20:00] Calcium Carbonate [Tums] 500 mg PO DAILY 11/13/16 [Last Taken Unknown] Fluticasone Propionate [Flonase Allergy Relief] 2 spray IH DAILY 11/13/16 [Last Taken Unknown] Benzonatate 100 mg PO QID PRN #15 capsule 02/24/17 [Last Taken Unknown] Folic Acid 1 mg PO DAILY 02/24/17 [Last Taken Unknown] Teriparatide [Forteo] 2.4 ml SQ DAILY 02/24/17 [Last Taken Unknown] - History of Present History Narrative: Patient presents for elevated blood pressure also she says she has a headache in the frontal region of her head she rates the pain at 8 out of 10, it is not thunderclap and she has not taken any medication for it. She has a history of rheumatoid arthritis and has pain all over her body that is normal for her. Review of Systems - Review of Systems Constitutional: Present: no symptoms reported EYE: Present: no symptoms reported ENT: Present: no symptoms reported Respiratory: Present: no symptoms reported Cardiology: Present: no symptoms reported Gastrointestinal/Abdominal: Present: no symptoms reported Genitourinary: Present: no symptoms reported Musculoskeletal: Present: no symptoms reported - Patient's Past Medical History Patient History - Medical: Anemia, Anxiety, Chronic Pain, Depression, GERD, Kidney stone, Osteoporosis, Rheumatoid Arthritis, Other Patient History - Cardiac/Respiratory: Atrial Fibrillation, Hypertension, Other Patient History - Cancer: No Hx of Cancer Patient History - Surgical Procedures: Cataracts, Colonoscopy, EGD, Other Patient History - Other: Chronic Steroid Therapy - Family History Mother Family History - Medical: , Alcohol Abuse Family History - Cardiac/Respiratory: CHF Family History - Cancer: No pertinent family hx Father Family History - Medical: , Alcohol Abuse Family History - Cardiac/Respiratory: CVA/Stroke, Myocardial Infarction Family History - Cancer: No pertinent family hx Brother Family History - Medical: Alcohol Abuse, Renal Failure Family History - Cardiac/Respiratory: Hypertension, Pneumonia Family History - Cancer: No pertinent family hx - Social History Living Situations: home Abuse History: No History of abuse Psych History: Hx of Anxiety, Hx of Depression, Current tx/ever been on anti- depressants or anti-anxiety meds - Immunizations Immunizations Up to Date: Yes Hx Pneumococcal Vaccination: Yes History of Influenza Vaccine: Yes Physical Exam - Physical Exam General Appearance: Present: wd/wn, alert, no apparent distress Head Exam: Present: normal inspection Ears, Nose, Throat: Present: normal ENT inspection Neck: Present: normal inspection Respiratory: Present: no respiratory distress, normal breath sounds, no accessory muscle use, chest nontender, lungs clear Cardiovascular/Chest: Present: regular rate, rhythm, no murmur, normal peripheral pulses ED Progress - Vital Signs Patient's Vital Signs:: I have reviewed the patient's vital signs. Vital Signs: Vital Signs 05/30/17 05/30/17 11:15 11:32 Temperature 36.8 C Pulse Rate 66 Respiratory 14 Rate Blood Pressure 182/79 170/78 O2 Sat by Pulse 97 Oximetry - Progress/Reassessment Chief Complaint: General Assessment Plan - Plan Plan: Since blood pressure is 170/75 this is done manually. This examiner doubts of the patient's symptoms are secondary to her blood pressure. She will be treated for a tension headache and sent home to follow up with her primary care doctor Departure Clinical Impression: Tension headache - Departure Disposition: Home self-care Condition: Good Referrals: Tiny Thakur MD [Primary Care Provider] -
== END 2017-05-30 11:49 | disposition home or self-care (01) ==
LOC: ER 11:14
DX: G44.209 Tension-type headache, unspecified, not intractable (principal)

== ENCOUNTER 2017-08-19 08:39 | Emergency (ER) | payer MEDICARE, BC ==
[2017-08-19 09:11] LABS: Hematocrit 34.4 % (37.0-47.0); Hemoglobin 11.7 gm/dL (12.5-16.0); Mean Cell Volume 92.7 fl (78-100); Mean Corpuscular Hemoglobin 31.5 pg (27-31); Platelet Count 254 K/mm3 (150-450); Red Blood Count 3.71 M/mm3 (4.2-5.4); Red Cell Distribution Width 14.9 % (11.5-14.0); White Blood Count 7.5 K/mm3 (4.0-10.5)
[2017-08-19 09:14] LABS: Total Cells Counted 100
[2017-08-19] MEDS: NORMAL SALINE 1,000 ML IV ONE (09:17)
[2017-08-19 09:21] LABS: Atypical (Reactive) Lymph 7 % (0-2); Lymphocyte 15 % (20-51); Monocyte 8 % (0-9); Neutrophil 70 % (42-75); Neutrophil # 5.3 K/mm3 (1.3-6.0); Platelet Estimate Normal (NORMAL); RBC Morphology Normal (NORMAL)
[2017-08-19 09:34] LABS: Troponin I 0.019 ng/ml (0.00-0.10)
[2017-08-19 09:35] LABS: Albumin * 3.4 gm/dl (3.4-5.0); Anion Gap 11.6 mmol/L (6.8-13.8); BUN/Creatinine Ratio 12.2 (9.0-21.6); Bilirubin, Total 0.6 mg/dL (0.0-1.1); CRP 3.5 mg/dL (0.0-0.9); Ca. Corrected For Albumin 9.1 mg/dL (8.4-10.2); Calcium * 8.9 mg/dL (7.9-10.9); Carbon Dioxide 25.1 mmol/L (24-32.6); Potassium 2.7 mmol/L (3.4-4.6); Total Protein 7.2 gm/dL (6.2-8.2)
[2017-08-19 09:50] LABS: Urine Bilirubin Negative (NEGATIVE); Urine Blood 25 /ul (NEGATIVE); Urine Ketone Negative (NEGATIVE); Urine Nitrite Negative (NEGATIVE); Urine Protein Negative (NEGATIVE); Urine Specific Gravity 1.015 SP.GR. (1.005-1.010); Urine Urobilinogen Normal (NORMAL)
[2017-08-19 09:56] LABS: Urine Appearance Clear; Urine Bacteria None Seen; Urine Color Yellow; Urine RBC 0-5 /hpf (0-5); Urine WBC None Seen /hpf (0-5)
--- NOTE | 2017-08-19 10:49 | ERNOTE ---
Dizziness ER Record Date of Service: 08/19/17 Presenting Symptoms: dizziness, weakness Time Seen by Provider: 08/19/17 08:46 Source: patient, family Immunizations: IMMUNIZATION HX Immunizations Up to Date Yes History of Influenza Vaccine Yes Hx Pneumococcal Vaccination Yes Allergies/Adverse Reactions: Allergies Allergy/AdvReac Type Severity Reaction Status Date / Time chlorpheniramine Allergy Intermediate dizzy, Verified 08/19/17 08:47 [From Codeine Antitussive vomiting Cough] hydrocodone [Hydrocodone] Allergy Intermediate hallucinati Verified 08/19/17 08: 47 ons hydrocodone bitartrate Allergy Intermediate nausea, Verified 08/19/17 08:47 [From Vicodin] vomiting, dizzy morphine Allergy Intermediate nause, Verified 08/19/17 08:47 vomiting, dizzy phenylephrine HCl Allergy Intermediate dizzy, Verified 08/19/17 08:47 [From Codeine Antitussive vomiting Cough] promethazine HCl Allergy Intermediate dizzy, Verified 08/19/17 08:47 [From Phenergan] vomiting aspirin AdvReac Intermediate "affected Verified 08/19/17 08:47 liver" codeine [Codeine] AdvReac Intermediate Nausea, Verified 08/19/17 08:47 vomiting, dizzy promethazine AdvReac Intermediate dizzy, Verified 08/19/17 08:47 vomiting Home Medications: HOME MEDICATIONS Methotrexate Sodium [Methotrexate] 25 mg IM Q7D 04/07/14 [Last Taken 06/05/16 09 :00] LORazepam [Ativan] 0.5 mg PO TID PRN #0 tablet 04/08/14 [Last Taken 06/08/16 06: 30] predniSONE [Prednisone] 2 mg PO DAILY 08/15/16 [Last Taken Unknown] Pantoprazole Sodium 40 mg PO DAILY #30 tablet. 09/18/16 [Last Taken Unknown] Sennosides/Docusate Sodium [Senokot-S] 1 tab PO TID #90 tablet 09/18/16 [Last Taken Unknown] Ferrous Sulfate [Iron] 325 mg PO BID 10/27/16 [Last Taken Unknown] Amiodarone HCl [Cordarone] 200 mg PO DAILY 11/13/16 [Last Taken Unknown] Calcium Carbonate [Tums] 500 mg PO DAILY 11/13/16 [Last Taken Unknown] Fluticasone Propionate [Flonase Allergy Relief] 2 spray IH DAILY 11/13/16 [Last Taken Unknown] Folic Acid 1 mg PO DAILY 02/24/17 [Last Taken Unknown] Teriparatide [Forteo] 2.4 ml SQ DAILY 02/24/17 [Last Taken Unknown] Metoprolol ER-Hctz 100-12.5 mg 25 mg PO DAILY 07/30/17 [Last Taken Unknown] - History of Present Illness Narrative: patient has been treated for bronchitis felt weak this am with palpations Timing and Duration: gradual onset Severity: max: mild Severity: currently: mild Associated Symptoms: Present: weakness, light headedness Sense of movement: Present: spinning Decreased ability to stand/walk:: Present: weak Usually:: Present: walks w/o assistance Modifying Factors - (Improves): Reports: nothing Modifying Factors - (Worsens): Reports: nothing Prior Treament: Reports: recently seen, treated by physician Review of Systems - Narrative Narrative: patient with past hx of atrial fibrilation and palpitations - Review of Systems Constitutional: Present: See HPI, weakness, fatigue, malaise EYE: Present: no symptoms reported ENT: Present: no symptoms reported Respiratory: Present: shortness of breath, cough Cardiology: Present: palpitations Gastrointestinal/Abdominal: Present: no symptoms reported Genitourinary: Present: no symptoms reported Musculoskeletal: Present: no symptoms reported Skin: Present: no symptoms reported Neurological: Present: no symptoms reported Endocrine: Present: no symptoms reported Hematologic/Lymphatic: Present: no symptoms reported Psych: Present: no symptoms reported All Other Systems: All systems neg except as marked - Narrative Narrative: c/o weakness and palpitations - Patient's Past Medical History Patient History - Medical: Anemia, Anxiety, Chronic Pain, Depression, GERD, Kidney stone, Osteoporosis, Rheumatoid Arthritis, Other Patient History - Cardiac/Respiratory: Atrial Fibrillation, Hypertension, Other Patient History - Cancer: No Hx of Cancer Patient History - Surgical Procedures: Cataracts, Colonoscopy, EGD, Other Patient History - Other: Chronic Steroid Therapy LMP (females 10-50): Menopausal - Family History Family History:: no untoward family reactions to anesthesia, no familial bleeding tendencies, no family history of clotting disorders, no family history of premature - Family History Mother Family History - Medical: , Alcohol Abuse Family History - Cardiac/Respiratory: CHF Family History - Cancer: No pertinent family hx Father Family History - Medical: , Alcohol Abuse Family History - Cardiac/Respiratory: CVA/Stroke, Myocardial Infarction Family History - Cancer: No pertinent family hx Brother Family History - Medical: Alcohol Abuse, Renal Failure Family History - Cardiac/Respiratory: Hypertension, Pneumonia Family History - Cancer: No pertinent family hx - Social History Living Situations: spouse Abuse History: No History of abuse Psych History: Hx of Anxiety, Hx of Depression, Current tx/ever been on anti- depressants or anti-anxiety meds Smoking Status: Never smoker Have you smoked in the past 12 months: No Do you dip or chew tobacco: No Patient requests Smoking Cessation Consult: No Initiate information on Smoking Cessation: No Alcohol Use: none Drug Use: none - Immunizations Immunizations Up to Date: Yes Hx Pneumococcal Vaccination: Yes History of Influenza Vaccine: Yes Physical Exam - Physical Exam General Appearance: Present: alert, mild distress Head Exam: Present: normal inspection, no evidence of injury Eye Exam: Normal inspection: bilateral, PERRL: bilateral, EOMI: bilateral Ears, Nose, Throat: Present: dry mucous membranes Neck: Present: normal inspection, nontender Respiratory: Present: no respiratory distress, normal breath sounds, no accessory muscle use, chest nontender, lungs clear Cardiovascular/Chest: Present: regular rate, rhythm, no murmur, normal peripheral pulses Peripheral Pulses: N=norm/S=strong/W=weak/B=bound/A=absent: Carotid (R): Normal , Carotid (L): Normal, Radial (R): Normal, Radial (L): Normal, Femoral (R): Normal, Femoral (L): Normal, Dorsalis-pedis (R): Normal, Dorsalis-pedis (L): Normal Gastrointestinal/Abdominal: Present: normal bowel sounds, nontender, nondistended, soft, no organomegaly Back Exam: Present: normal inspection, normal range of motion, no CVA tenderness , no vertebral tenderness Extremity Exam: Present: normal inspection, non-tender, normal range of motion, no edema, other - upper extremityfindings compatable with rheumatoisd arthritis DTR: N=norm/NB=norm/brisk/A=abs/DD=dull/dimin/HC=hyperactive: Bicep (R): Normal , Bicep (L): Normal, Tricep (R): Normal, Tricep (L): Normal, Knee (R): Normal, Knee (L): Normal, Ankle (R): Normal, Ankle (L): Normal Skin Exam: Present: normal color, warm/dry Lymphatic Exam: Present: no adenopathy ED Progress - Date and Time Seen: Date and Time: 08/19/17 10:47 improved, patient feeling better - Results and Orders Patient's Lab Results:: I have reviewed the patient's lab results. - Vital Signs Patient's Vital Signs:: I have reviewed the patient's vital signs. Vital Signs: Vital Signs 08/19/17 08:43 Temperature 36.3 C L Pulse Rate 88 Respiratory 14 Rate Blood Pressure 151/84 O2 Sat by Pulse 95 Oximetry - EKG EKG: NSR EKG read: Interp. by me - X-Ray X-Ray #1 X-Ray: chest Interpretation: Discd w/ radiologist - no acute process - Progress/Reassessment Chief Complaint: Dizziness Progress:: Improved - Transfer of Care Expected Disposition: Discharge Plan - Plan Plan: to be discharged Departure Clinical Impression: Dehydration, moderate - Departure Disposition: Home self-care Condition: Fair Instructions: Dehydration, Adult, [id number] Referrals: Tiny Thakur MD [Primary Care Provider] -
[2017-08-19 11:01] VITALS: BP 139/46
== END 2017-08-19 11:02 | disposition home or self-care (01) ==
LOC: ER 08:39
DX: K21.9 Gastro-esophageal reflux disease without esophagitis; M81.0 Age-related osteoporosis without current pathological fracture; Z87.442 Personal history of urinary calculi; D64.9 Anemia, unspecified; E86.0 Dehydration; F41.9 Anxiety disorder, unspecified